=== PATIENT | male | born 1985 | race Caucasian/White ===

== ENCOUNTER 2025-01-16 16:09 | Outpatient (CLI) | payer BC, SELFPAY | END 2025-01-16 16:10 | disposition home or self-care (01) | LOC: AMB 01-19 15:58 | PROVIDERS: Visit Provider Family Medicine | DX: R56.9 Unspecified convulsions (principal); S09.90XA Unspecified injury of head, initial encounter; W19.XXXA Unspecified fall, initial encounter; Y93.89 Activity, other specified; Y92.318 Other athletic court as the place of occurrence of the external cause | CPT/HCPCS: A0425; A0427 ==

== ENCOUNTER 2025-01-16 16:34 | Emergency (ER) | payer BC, SELFPAY ==
--- OUTSIDE RECORDS SUMMARY | 2025-01-05 14:45 | XMS_ITS | Encounter Summary ---
Author Organization [facility] Address [address] [place] [address] Care Team Providers Care Sales Representative [employer] Name Role Phone Jamshid Sapp MD Unavailable [phone] Darío Medeiros MD Primary Care Provider [phone] Source Comments In the event that this is information that is protected by federal Confidentiality of Substance User Disorder Patient Records, 42 CFR Part 2 prohibits the unauthorized disclosure of these records.[facility] Encounter Details Date Type Department Care Team (Latest Contact Info) Description 01/05/2025 2:45 PM CDT Outpatient Testing [facility] [address] [phone] Acquired hemolytic anemia (CMS-HCC); Macrocytic anemia Social History Tobacco Use Types Packs/Day Years Used Date Smoking Tobacco: Never Smokeless Tobacco: Never Alcohol Use Standard Drinks/Week Comments Not Currently 3 (1 standard drink = 0.6 oz pur e alcohol) Food Insecurity Answer Date Recorded Have there been times that y our food ran out, and you didn't have money to get more? No 02/18/2023 Are there times that you worry that this might h appen? No 02/18/2023 Transportation Needs Answer Date Record ed Do you have trouble getting transportation to medical appointments? No 02/18/2023 How do you normally get to and from your appoint ments? Other 02/18/2023 Housing Stability Answer Date Recorded Are you concerned about havi ng a safe and reliable place to live? No 02/18/2023 Medication Affordability Answer Date Re corded Do you have trouble getting medicines, medical supplies, or paying for medication co-pays on a regular basis? No 01/29 Assistance Answer Date Recorded Would you like to be connect ed to groups that can help with any of these topics? (choose all that apply) None 02/18/2023 [employer] Resources Answer Date Recorded Would you like to be connect ed to groups that can help with any of these topics? (choose all that apply) None 02/18/2023 Housing Stability Answer Date Recorded Are you worried that your el ectric, gas, oil, or water might be shut off? Not on file 02/18/2023 Are you concerned about [facility] a safe and reliable place to live? 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 Not on file Not on camryn e documented as of this encounter Plan of Treatment Upcoming Encounters Date Type Department Care Team (Late st Contact Info) Description 04/08/2025 11:10 AM [employer] Outpatient Testing [facility] [address] [phone] 3 month 04/08/2025 11:45 AM [employer] Office Visit [facility] [address] [phone] [place] [address] [place] [phone] 3 month documented as of this encounter Procedures Procedure Name Priority Date/Time Associated Diagnosis Comments RETICULOCYTE COUNT Routine 01/05/2025 2: 51 PM CDT Acquired hemolytic anemia (CMS-HCC) Macrocytic anemia CBC AND DIFFERENTIAL Routine 01/05/2025 2:51 PM CDT Acquired hemolytic anemia (CMS-HCC) LDH Routine 01/05/2025 2:51 PM CDT Acquired hemolytic anemia (CMS-HCC) Macrocytic anemia HAPTOGLOBIN Routine 01/05/2025 2:51 PM CDT Acquired hemolytic anemia (CMS-HCC) Macrocytic anemia COMPREHENSIVE METABOLIC PANEL Routine 01/05/2025 2:51 PM CDT Acquired hemolytic anemia (CMS-HCC) Macrocytic anemia documented in this encounter Results * (ABNORMAL) Haptoglobin (01/05/2025 2:51 PM CDT) Haptoglobin <30(L) 30 - 210 mg/dL 01/06/2025 11:07 AM CDT [facility] Blood VEIN SPECIMEN / Unknown Blood Collection / Unknown 01/05/2025 2:51 PM CDT 01/05/2025 3:20 PM CDT us Jamshid Sapp MD CHEMISTRY ORDERABLES Final R esult Performing Organization Address City/[facility]/ZIP Co de Phone Number [facility] Brittany Rice [address] [place] [address] * LDH (01/05/2025 2:51 PM CDT) LDH 179 0 - 271 units/L 01/05/2025 3:34 PM CDT [facility] Blood VEIN SPECIMEN / Unknown Blood Collection / Unknown 01/05/2025 2:51 PM CDT 01/05/2025 3:20 PM CDT Jamshid Sapp MD CHEMISTRY ORDERABLES Final R esult [facility] [address] [place] [address] * (ABNORMAL) Reticulocyte Count (01/05/2025 2:51 PM CDT) Reticulocyte Count Percent 3.53(H) 0.50 - 2.50 % 01/05/2025 3:26 PM CDT [facility] Reticulocyte Count Absolute 145.10 No defined reference range 10 3/ L 01/05/2025 3:26 PM CDT [facility] Blood VEIN SPECIMEN / Unknown Blood Collection / Unknown 01/05/2025 2:51 PM CDT 01/05/2025 3:18 PM CDT Narrative [facility] - 01/05/2025 3:26 PM CDT Reference ranges for nonbinary/intersex or unspecified gender patients have not been established. Please refer to the following table for ranges established for cisgender patients and evaluate in the clinical context of the individual patient: [email or web address]/genderx [email or web address] Jamshid Sapp MD HEMATOLOGY ORDERABLES Final Result [facility] [address] [place] [address] * (ABNORMAL) Comprehensive Metabolic Panel (01/05/2025 2:51 PM CDT) Sodium 137 133 - 146 mmol/L 01/05/2025 3:34 PM CDT [facility] Potassium 3.9 3.5 - 5.1 mmol/L 01/05/2025 3:34 PM CDT [facility] Chloride 99 98 - 109 mmol/L 01/05/2025 3:34 PM CDT [facility] Carbon Dioxide 30 21 - 31 mmol/L 01/05/2025 3:34 PM CDT [facility] Anion Gap 8 4 - 13 mmol/L 01/05/2025 3:34 PM CDT [facility] Blood Urea Nitrogen 19 2 - 25 mg/dL 01/05/2025 3:34 PM CDT [facility] Creatinine 1.04 0.60 - 1.30 mg/dL 01/05/2025 3:34 PM CDT [facility] eGFRcr (CKD-EPI 2020) >90 >=60 mL/min/1. 73 m 01/05/2025 3:34 PM CDT [facility] Calcium 10.1 8.3 - 10.5 mg/dL 01/05/2025 3:34 PM CDT [facility] Glucose 91 65 - 100 mg/dL 01/05/2025 3:34 PM CDT [facility] Protein, Total 7.7 6.4 - 8.9 g/dL 01/05/2025 3:34 PM CDT [facility] Albumin 5.1 3.5 - 5.7 g/dL 01/05/2025 3:34 PM CDT [facility] ALT 23 0 - 52 units/L 01/05/2025 3:34 PM CDT [facility] Alkaline Phosphatase 61 34 - 104 units/L 01/05/2025 3:34 PM CDT [facility] AST 18 0 - 39 units/L 01/05/2025 3:34 PM CDT [facility] Bilirubin, Total 1.2(H) 0.0 - 1.0 mg/dL 01/05/2025 3:34 PM CDT [facility] Patient Fasting? Nonfasting 01/05/2025 3:34 PM CDT [facility] Blood VEIN SPECIMEN / Unknown Blood Collection / Unknown 01/05/2025 2:51 PM CDT 01/05/2025 3:20 PM CDT us Jamshid Sapp MD CHEMISTRY ORDERABLES Final R esult [facility] [address] [place] [address] * (ABNORMAL) CBC with Differential (01/05/2025 2:51 PM CDT) WBC 4.9 3.5 - 10.5 10 3/ L 01/05/2025 3:26 PM CDT [facility] RBC 4.11(L) (Based on documented legal sex) 4.30-5.80 10 6/ L 01/05/2025 3:26 PM CDT [facility] HGB 14.3 (Based on documented legal sex) 13.0-17.5 g/dL 01/05/2025 3:26 PM CDT [facility] HCT 42.9 (Based on documented legal sex) 38.0-50.0 % 01/05/2025 3:26 PM CDT [facility] MCV 104.4(H) 80.0 - 99.0 fL 01/05/2025 3:26 PM [facility] MCH 34.8(H) 27.0 - 34.0 pg 01/05/2025 3:26 PM [facility] MCHC 33.3 32.0 - 35.5 g/dL 01/05/2025 3:26 PM [facility] RDW 11.6 11.0 - 15.0 % 01/05/2025 3:26 PM [facility] PLT 239 150 - 400 10 3/ L 01/05/2025 3:26 PM [facility] MPV 9.2 8.8 - 12.1 fL 01/05/2025 3:26 PM [facility] NRBC's 0.0 0.0 % 01/05/2025 3:26 PM [facility] Absolute NRBCs 0.0 No reference range established 10 3/ L 01/05/2025 3:26 PM [facility] Neutrophils 77.7(H) 34.0 - 73.0 % 01/05/2025 3:26 PM [facility] Lymphocytes 12.7(L) 15.0 - 50.0 % 01/05/2025 3:26 PM [facility] Monocytes 7.8 1.0 - 15.0 % 01/05/2025 3:26 PM [facility] Eosinophils 1.0 0.0 - 8.0 % 01/05/2025 3:26 PM [facility] Basophils 0.6 0.0 - 2.0 % 01/05/2025 3:26 PM [facility] Immature Granulocytes 0.2 No defined reference range % 01/05/2025 3:26 PM [facility] Comment:Immature Granulocyte s (IG) represents automated enumeration of Metamyelocytes, Myelocytes and Promyelocytes when IG is < 5%. Blasts are not included in IG and reported separately if present. Absolute Neutrophils 3.8 1.5 - 8.0 10 3/ L 01/05/2025 3:26 PM T [facility] Absolute Lymphocytes 0.6(L) 1.0 - 4.0 10 3/ L 01/05/2025 3:26 PM [facility] Absolute Monocytes 0.4 0.2 - 1.0 10 3/ L 01/05/2025 3:26 PM CDT [facility] Absolute Eosinophils 0.1 0.0 - 0.6 10 3/ L 01/05/2025 3:26 PM CDT [facility] Absolute Basophils 0.0 0.0 - 0.3 10 3/ L 01/05/2025 3:26 PM CDT [facility] Absolute Immature Granulocytes 0.0 0.00 - 0.10 10 3/ L 01/05/2025 3:26 PM CDT [facility] Blood VEIN SPECIMEN / Unknown Blood Collection / Unknown 01/05/2025 2:51 PM CDT 01/05/2025 3:18 PM CDT Narrative [facility] - 01/05/2025 3:26 PM CDT Reference ranges for nonbinary/intersex or unspecified gender patients have not been established. Please refer to the following table for ranges established for cisgender patients and evaluate in the clinical context of the individual patient: [email or web address].org/genderx [email or web address] Jamshid Sapp MD HEMATOLOGY ORDERABLES Final Result [facility] [address] [place] [address] documented in this encounter Visit Diagnoses Diagnosis Acquired hemolytic anemia (CMS-HCC) Acquired hemolytic anemia, unspecified Macrocytic anemia Unspecified deficiency anemia documented in this encounter Care Teams Sales Representative [employer] Relationship Specialty Start Date End Date Darío Medeiros MD [address] [place] [address] PCP - General Internal Medicine 04/25/23 Jamshid Sapp MD [address] [place], [place] [id number] System Generated Attributed Clinician 04/10/23 documented as of this encounter
--- OUTSIDE RECORDS SUMMARY | 2025-01-05 15:45 | XMS_ITS | Encounter Summary ---
Author Organization [facility] Address [address] [place] [address] Care Team Providers Care Plasterer Tender Name Role Phone Jamshid Sapp MD Unavailable [phone] Darío Medeiros MD Primary Care Provider Source Comments In the event that this is information that is protected by federal Confidentiality of Substance User Disorder Patient Records, 42 CFR Part 2 prohibits the unauthorized disclosure of these records.[facility] Reason for Visit * Reason Comments Follow-up Encounter Details Date Type Department Care Team (Late st Contact Info) Description 01/05/2025 3:45 PM CDT Office Visit [facility] [address] [phone] Jamshid Sapp MD [address] [place] [address] Acquired hemolytic anemia (CMS-HCC) (Primary Dx); Macrocytic anemia Social History Tobacco Use Types [...] Answer Date Recorded Are you concerned about [place] a safe and reliable place to live? [...] on file 02/18/2023 Are you concerned about [place] a safe and reliable place to live? 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 Not on file Not on camryn e documented as of this encounter Last Filed Vital Signs Vital Sign Reading Time Taken Comments Blood Pressure 145/87 01/05/2025 3:08 PM CDT Pulse 99 01/05/2025 3:07 PM CDT Temperature 36.4 C (97.5 F) 01/05/2025 3:07 PM CDT Respiratory Rate - - Oxygen Saturation 97% 01/05/2025 3:07 PM CDT Inhaled Oxygen Concentration - - Weight 66.9 kg (147 lb 6.4 oz) 01/05/2025 3:07 P M CDT Height - - Body Mass Index 20.56 06/17/2024 1:19 PM [employer] documented in this encounter Progress Notes * Jamshid Sapp MD - 01/05/2025 3:45 PM CDT MEDICAL ONCOLOGY & HEMATOLOGY PROGRESS NOTE Reason for Visit: Follow up of Macrocytic anemia, jaundice Requesting Provider: Darío Medeiros MD Date: 01/05/25 Chief Concern: Macrocytic anemia, jaundice Hematological History: 03/2022: He reported that his friends first noticed that he was jaundiced. He did not have any blood transfusions, new medications, supplements, infections, travel, tick bites 06/2022: Travel to [place] with multiple insect bites. 02/06/2023: Labs showed hemoglobin 9.5, MCV 114, platelets 195, total bilirubin 6.8 02/19/2023: Labs showed hemoglobin 10.6, MCV 115.2, platelets 199, total bilirubin 6.2 with direct bilirubin 0.7, folate > 20. B12 1067. HIV negative, hepatitis C antibody negative, TSH 0.98. Peripheral smear showed macrocytic anemia and anisopoikilocytosis including ovalocytes, yeyo cells, teardrop cells, acanthocytes. 02/28/2023: He established care with me at clinic. Hemoglobin continued to improve with decrease in bilirubin. Direct bria negative. Hepatitis B negative. Iron 114, Tsat 34%, ferritin 95. 03/07/2023: Liver ultrasound unremarkable 03/21/2023: hemoglobin 11.9, MCV 105, retic 3.36, Total bilirubin 2.3, haptoglobin <30, LDH 195 03/28/2023: G6PD normal, copper normal, PNH negative, No abnormal hemoglobin on hemoglobin electrophoresis, FRANCISCO J negative, TSH within normal limit 04/25/2023: FRANCISCO J negative. Peripheral flow with polytypic B-cell and T-cell population, no blasts. 09/11/2023: Bone marrow biopsy showed normocellular bone marrow (70%) with normal multilineage hematopoiesis with mild erythroid hyperplasia, no increase in blasts, no evidence of myelodysplasia. Flowresults do not show monoclonal population. Cytogenetic showed normal male karyotype. Heme NGS was negative for any clinically significant alterations. 02/22/2024: CT chest abdomen pelvis with no acute etiology. He is noted to have splenomegaly with spleen measuring 14.5 cm 06/17/2024: EGD/colonoscopy with few shallow erosions in the prepyloric antrum, small hemorrhoids. Pathology negative for H. pylori or malignancy. 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 male who presents for follow up of macrocytic anemia, jaundice. His history is as above. He does have more stress in life due to family related concerns Reports episode of jaundice and nausea 1-2 weeks ago Past Medical History: None Past Surgical History: Tonsillectomy Tympanostomy tube placement Allergies Allergen Reactions Latex Itching and Rash Current Outpatient Medications on File Prior to Visit Medication Sig Dispense Refill ascorbic acid (VITAMIN C ORAL) Take by mouth. clonazePAM 0.5 mg tablet Take 2 tablets by mouth if needed. cloNIDine HCL 0.1 mg tablet 1 tablet. esomeprazole (NEXIUM) 40 mg capsule 1 capsule by mouth daily, 30-60 minutes before eating 30 capsule 11 FLUoxetine 10 mg capsule Take 5 capsules by mouth daily. FOLIC ACID ORAL Take by mouth. gabapentin 100 mg capsule Take 1 oral capsule as needed up to 3 times a day hydrOXYzine 25 mg tablet Take 1 tablet by mouth every 6 (six) hours as needed. mirtazapine 15 mg tablet ondansetron-ODT 4 mg disintegrating tablet QUEtiapine 50 mg tablet extended release 24 hr Take 1 tablet by mouth if needed. sertraline 25 mg tablet Take 1 tablet by mouth daily. Take 25mg for one week and then start 50mg sodium,potassium,mag sulfates (SUPREP BOWEL PREP KIT) 17.5-3.13-1.6 gram Recon Soln Take as directed 354 mL 0 No current facility-administered medications on file prior to visit. Family History: Maternal grandfather had leukemia. Social History: He is a current every day cigarette smoker (vaping) and reports decrease in alcohol intake but doesreport heavy drinking prior to 2019 with 6-8 bottles of kasey a week. 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 Review of Systems: Constitutional, ophthalmologic, ENT, cardiac, pulmonary, GI, , musculoskeletal, neurologic, psychiatric, lymphatic and hematologic review is negative except as noted above or as noted in the reviewon the new patient questionnaire. Pain Score: 0/10 Performance Status: ECOG PS 0 Emotional Well-being: There is no evidence of new, acute distress. OBJECTIVE Vitals: Most Recent : BP 145/87 Pulse 99 Temp 97.5 ??F (36.4 ??C) (Temporal) Wt 66.9 kg (147 lb 6.4 oz) SpO2 97% BMI 20.56 kg/m?? Wt Readings from Last 3 Encounters: 01/05/25 66.9 kg (147 lb 6.4 oz) 06/17/24 64 kg (141 lb) 05/20/24 64.1 kg (141 lb 6.4 oz) Physical Exam: General: In no acute distress HEENT: sclera anicteric, no pallor, mucous membranes moist, oropharynx clear Lymphatics: no cervical or supraclavicular adenopathy Chest: clear to auscultation bilaterally Heart: regular rate and rhythm Abdomen: soft, non-tender Extremities: no edema Neurologic: Alert, speech normal, no gross motor or sensory deficits noted Psychiatric exam: Appropriate affect Skin: no rashes or bruises Lab/Radiology/Diagnostic Review: CBC: Lab Results Component Value Date WBC 4.9 01/05/2025 HGB 14.3 01/05/2025 HCT 42.9 01/05/2025 MCV 104.4 (H) 01/05/2025 NEUTROABS 3.8 01/05/2025 CMP: Lab Results Component Value Date CO2 30 01/05/2025 GLUCOSE 91 01/05/2025 CREATININE 1.04 01/05/2025 CALCIUM 10.1 01/05/2025 AST 18 01/05/2025 ALT 23 01/05/2025 ALKPHOS 61 01/05/2025 BILITOT 1.2 (H) 01/05/2025 PROT 7.7 01/05/2025 ANIONGAP 8 01/05/2025 Radiology: I have personally reviewed the pertinent imaging as per HPI. Pathology: I have personally reviewed the pertinent pathology as per HPI. ASSESSMENT & PLAN: Kennedy Garcia is a 39 y.o. male who presents for follow up of bria negative hemolytic anemia. Hemoglobin and bilirubin improved. So far non-immune causes of hemolysis have been unrevealing. Bone marrow biopsy was unrevealing. We can consider trial of steroids plus minus rituximab if hemoglobin <10. Occasionally, he does have lower hemoglobin than his normal baseline. However hemolysis markers arenot concurrently elevated. Given these findings and symptoms of rectal bleeding, he underwent EGD/colonoscopy which did not show acute source of bleeding. We discussed starting empiric steroids plus minus rituximab pending steroid response for hemolytic anemia if hemoglobin consistently <10. Hemoglobin normal today and hemolysis markers improved. Continue folic acid 1 mg daily, can increase to 2-4 mg/day. He will follow up with me in 3 months. He is advised to call me with any questions or concerns. Jamshid Sapp MD Medical Oncology & Hematology documented in this encounter Plan of Treatment Upcoming Encounters Date Type Department Care Team (Late st Contact Info) Description 04/08/2025 11:10 AM [employer] Outpatient Testing [facility] [address] [place] [address] 3 month 04/08/2025 11:45 AM [employer] Office Visit [facility] [address] [place] [id number] Jamshid Sapp MD [address] [place], [place] [id number] 3 month documented as of this encounter Visit Diagnoses Diagnosis Acquired hemolytic anemia (CMS-HCC)- Primary Acquired hemolytic anemia, unspecified Macrocytic anemia Unspecified deficiency anemia documented in this encounter Care Teams Plasterer Tender Relationship Specialty Start Date End Date Darío Medeiros MD [address] [place] [address] PCP - General Internal Medicine 04/25/23 Jamshid Sapp MD [address] [place] [id number] System Generated Attributed Clinician 04/10/23 documented as of this encounter
[2025-01-16 16:43] VITALS: BP 147/96; PULSE 92; RESP 18; TEMP 35.9; O2SAT 94; BMI 21.1
--- NOTE | 2025-01-16 17:12 | CRLHL7_ITS ---
For Patients: As a result of the Century Cures Act, medical imaging exams and procedure reports are released immediately into your electronic medical record. You may view this report before your referring provider. If you have questions, please contact your health care provider. INDICATION: Trauma, fall. TECHNIQUE: CT head without contrast. COMPARISON: None. FINDINGS: CSF spaces: Within normal limits for age. Brain parenchyma and extra-axial spaces: The sparks-white differentiation is normal. No sign of mass, hemorrhage, or midline shift. No extra-axial fluid collection. Skull base and calvarium: The visualized paranasal sinuses and mastoid air cells demonstrate no acute or significant findings. The visualized orbits are grossly unremarkable. No skull fractures. IMPRESSION: Unremarkable noncontrast head CT. Please note that all CT scans at this facility use dose modulation, iterative reconstruction, and/or weight-based dosing when appropriate to reduce radiation dose to as low as reasonably achievable. Dictated by Darrius Ng MD @ 01/16/2025 6:25:28 PM (Electronically Signed)
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
[2025-01-16 17:46] LABS: Lactate* 2.4 mmol/L (0.5-1.9)
[2025-01-16 17:49] LABS: Hematocrit* 34.6 % (37.0-53.0); Hemoglobin* 11.3 gm/dL (13.5-17.5); Immature Granulocytes Abs Auto 0.01 K/uL (0.00-0.30); Immature Granulocytes Pct Auto 0.2 %; Mean Corpuscular HGB Conc 33 gm/dL (32-36); Mean Corpuscular Hemoglobin 34 pg (26-34); Mean Corpuscular Volume 105 fL (80-100); RDW Coefficient of Variation % 11.9 % (11.5-15.5); Red Blood Count* 3.29 m/uL (4.30-5.90); White Blood Count* 6.01 K/uL (4.50-11.00)
[2025-01-16 17:50] LABS: Lymphocytes Absolute Auto 0.60 K/uL (0.90-2.90)
[2025-01-16 17:51] LABS: Slide Review Reflex No
[2025-01-16 17:59] LABS: Appearance Urine Clear (Clear)
[2025-01-16 18:04] LABS: Chloride* 102 mmol/L (96-114)
[2025-01-16 18:05] LABS: Potassium* 4.9 mmol/L (3.6-5.1); Sodium* 138 mmol/L (135-149)
[2025-01-16 18:07] LABS: Alanine Aminotransferase* 25 U/L (4-50); Alkaline Phosphatase* 47 U/L (40-150); Anion Gap 9 mEq/L (7-15); Aspartate Amino Transferase* 37 U/L (12-35); Bilirubin Direct* 0.4 mg/dL (0.0-0.5); Bilirubin Total* 3.7 mg/dL (0.1-1.5); Blood Urea Nitrogen* 18 mg/dL (5-24); Calcium* 9.7 mg/dL (8.4-10.6); Carbon Dioxide* 27 mmol/L (20-32); Creatinine* 1.0 mg/dL (0.5-1.5); Est. Creatinine Clearance* 85.90; Estimated Glomerular Filt Rate 98 ml/min; Glucose* 115 mg/dL (60-115); Total Protein* 7.1 g/dL (6.0-8.3)
[2025-01-16 18:15] LABS: Cannabinoid Screen Urine POSITIVE (Negative)
[2025-01-16 18:16] LABS: Methamphetamines Screen Urine Negative (Negative); Tricyclic Antidepressant Urine Negative (Negative)
--- OUTSIDE RECORDS SUMMARY | 2025-01-16 18:21 | XMS_ITS | Clinical Summary ---
Author Organization [facility] Address [address] [place] [address] Care Team Providers Care Trainer Name Role Phone Unknown, Patient Pcp Primary Care Provider Unava ilable Source Comments [facility] is the largest [facility] system based in [place]. We offer more than 150 locations around the [facility], in communities large and small, so health care access is convenient. With 19 [facility] and [facility] hospitals, over 25 long-term care and custodial facilities, dozens of physician offices and health centers, home care, hospice, behavioral health services and more. Currently six of our Hospitals are live on the [facility] system, they are: [facility], located within [facility] Social History Tobacco Use Types Packs/Day Years Used Date Smoking Tobacco: Never Assessed Sex and Gender Information Value Date Recorded Sex Assigned at Not on file Gender Identity Not on file Sexual Orientation Not on file Plan of Treatment Health Maintenance Due Date Last Done Comments DEPRESSION SCREENING 1 YEAR 1997 Influenza Vaccine (#1) 2024 Lipid Panel 02/19/2026 02/19/2023, 04/06/2008 DTAP,TDAP AND TD VACCINES (3 - Td or Tdap) 02/19/2033 02/19/2023, 03/18/2013 RSV Vaccine Patients 60 Year s and Older (1 - 1-dose 75+ series) 2060 HIV SCREENING Completed 02/19/2023 Pneumococcal Vaccine: Peds (0-5 Yrs) and At-Risk (6-64 Yrs) Aged Out No longer eligible b ased on patient's age to complete this topic RSV Vaccine Pediatric Patients under 20 months Aged Out No longer eligi ble based on patient's age to complete this topic Care Teams Trainer Relationship Specialty Start Date End Date Unknown, Patient Pcp [address] [place] [address] PCP - General 05/02/24
--- OUTSIDE RECORDS SUMMARY | 2025-01-16 18:21 | XMS_ITS | Clinical Summary ---
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 Gender Identity Not on file Sexual Orientation Not on file Plan of Treatment Health Maintenance Due Date Last Done Comments HIV Screening 1985 Hepatitis C Screening 1985 HPV Vaccines (Age 27-45) (1 - 3-dose SCDM series) 2012 DTaP,Tdap and Td Vaccines (2 - Td or Tdap) 03/18/2023 03/18/2013 COVID-19 Vaccine ( - 2023-2 5 season) 2024 Influenza Vaccine (#1) 2024 Meningococcal B Aged Out No longer el igible based on patient's age to complete this topic Pneumococcal 7-64 Aged Out No longer eligible based on patient's age to complete this topic RSV Vaccine (Pediatric) Aged Out No l onger eligible based on patient's age to complete this topic Insurance [facility] [employer] Care Teams It Security Analyst Relationship Specialty Start Date End Date Pcp-Interviewed, Pt Has Pcp But Does Not Know Name Of Pcp [address] [place] [address] PCP - General 03/18/13
--- OUTSIDE RECORDS SUMMARY | 2025-01-16 18:21 | XMS_ITS | Encounter Summary ---
Author Organization [facility] Address [address] [place] [address] Care Team Providers Care Peripheral Edp Equipment Operator Name Role Phone Jamshid Sapp MD Unavailable [phone] Darío Medeiros MD Primary Care Provider [phone] Source Comments In the event that this is information that is protected by federal Confidentiality of Substance User Disorder Patient Records, 42 CFR Part 2 prohibits the unauthorized disclosure of these records.[facility] Encounter Details Date Type Department Care Team (Late st Contact Info) Description 02/20/2024 Procedure Pass [place] [facility] [address] [facility] [address] [place], [place] [id number] Social History Tobacco Use Types Packs/Day Years [...] Answer Date Recorded Are you concerned about [facility] a safe and reliable place to [...] on file 02/18/2023 Are you concerned about [facility] ng a safe and reliable place to live? 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 Not on file Not on camryn e documented as of this encounter Plan of Treatment Upcoming Encounters Date Type Department Care Team (Late st Contact Info) Description 04/08/2025 11:10 AM APPLICATION PROGRAMMER ANALYST Outpatient Testing [facility] [address] [place] [phone] 3 month 04/08/2025 11:45 AM APPLICATION PROGRAMMER ANALYST Office Visit [facility] [address] [place] [phone] Jamshid Sapp MD [address] [place] [address] 3 month documented as of this encounter Visit Diagnoses Not on filedocumented in this encounter Additional Health Concerns Infection Onset Date Last Indicated Resolved Time Rule-out C. diff 04/18/2024 05/20/2024 04/19/2024 7:26 PM APPLICATION PROGRAMMER ANALYST documented as of this encounter Care Teams Peripheral Edp Equipment Operator Relationship Specialty Start Date End Date Darío Medeiros MD [address] [place] [address] PCP - General Internal Medicine 04/25/23 Jamshid Sapp MD [address] [place] [id number] System Generated Attributed Clinician 04/10/23 documented as of this encounter
--- OUTSIDE RECORDS SUMMARY | 2025-01-16 18:21 | XMS_ITS | Clinical Summary ---
Author Organization [facility] Address [address] [place] [address] Care Team Providers Care Nail Sticker Name Role Phone Pcp, Verify Primary Care Provider Unavailabl e Immunizations Immunization Administration Dates Next Due COVID Pfizer 12Y+ (Requires Dilution) 04/13/2021 Social History Tobacco Use Types Packs/Day Years Used Date Smoking Tobacco: Never Assessed Inadequate Housing Answer Date Recorded Social Determinants: Housing (Overall Score Help er) 0 04/11/2021 Sex and Gender Information Value Date Recorded Sex Assigned at Not on file Legal Sex Male 3:13 PM CDT Gender Identity Not on file Sexual Orientation Not on file Last Filed Vital Signs Vital Sign Reading Time Taken Comments Blood Pressure 130/72 10/26/2017 1:55 PM CDT Pulse - - Temperature 36.7 C (98.1 F) 10/26/2017 1:55 PM CDT Respiratory Rate - - Oxygen Saturation - - Inhaled Oxygen Concentration - - Weight 72.1 kg (159 lb) 10/26/2017 1:55 PM CDT Height 177.8 cm (5' 10) 10/26/2017 1:55 PM CDT Body Mass Index 22.81 10/26/2017 1:55 PM CDT Plan of Treatment Health Maintenance Due Date Last Done Comments Depression Screening 1997 Varicella Vaccine (1 of 2 - 13+ 2-dose series) 1998 Hepatitis B Vaccine (1 of 3 - 19+ 3-dose series) 2004 DTaP/Tdap/Td Vaccine (2 - Td or Tdap) 03/18/2023 03/18/2013 COVID-19 Vaccine (4 - 2024-2 6 season) 2024 04/13/2021, 08/28/2020, 08/07/2020 Influenza Vaccine (#1) 2024 HPV Vaccine (No Doses Required) Completed Hepatitis A Vaccine Aged Out No longe r eligible based on patient's age to complete this topic Meningococcal Serogroup B Vaccine Aged Out No longer eligible b ased on patient's age to complete this topic Meningococcal Vaccine Aged Out No renaldo noemí eligible based on patient's age to complete this topic Pneumococcal Vaccine 0-49 Aged Out No longer eligible based on patient's age to complete this topic Insurance [facility] Care Teams Nail Sticker Relationship Specialty Start Date End Date Pcp, Verify PCP - General 01/21/21
--- OUTSIDE RECORDS SUMMARY | 2025-01-16 18:22 | XMS_ITS | Encounter Summary ---
Author Organization [facility] Address [address] [place] [address] Care Team Providers Care Emergency Medicine Specialist Name Role Phone Jamshid Sapp MD Unavailable [phone] Darío Medeiros MD Primary Care Provider [phone] Source Comments In the event that this is information that is protected by federal Confidentiality of Substance User Disorder Patient Records, 42 CFR Part 2 prohibits the unauthorized disclosure of these records.[facility] Encounter Details Date Type Department Care Team (Late st Contact Info) Description 06/20/2024 Orders Only [place] Hematology and Oncology [address] [phone] Jamshid Sapp MD [address] [place] [address] Social History Tobacco Use Types Packs/Day Years [...] Answer Date Recorded [facility] and reliable [facility] to [...] on file 02/18/2023 Are you concerned about [facility] ng a safe and reliable place to live? 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 Not on file Not on camryn e documented as of this encounter Plan of Treatment Upcoming Encounters Date Type Department Care Team (Late st Contact Info) Description 04/08/2025 11:10 AM MICA SIZER Outpatient Testing [place] [facility] [address] [phone] 3 month 04/08/2025 11:45 AM MICA SIZER Office Visit [place] Hematology and Oncology [address] [phone] Jamshid Sapp MD [address] [place], [place] [id number] 3 month documented as of this encounter Results * (ABNORMAL) Haptoglobin (09/19/2024 2:55 PM CDT) Haptoglobin <30(L) 30 - 210 mg/dL 09/20/2024 2:21 PM CDT [facility] Blood VEIN SPECIMEN / Unknown Blood Collection / Unknown 09/19/2024 2:55 PM CDT 09/19/2024 3:06 PM CDT us Jamshid Sapp MD CHEMISTRY ORDERABLES Final R esult Performing Organization Address City/[facility]/ZIP Co de Phone Number [facility] Brittany Rice [address] [place] [address] * (ABNORMAL) LDH (09/19/2024 2:55 PM CDT) LDH 309(H) 0 - 271 units/L 09/19/2024 3:31 PM CDT [facility] Blood VEIN SPECIMEN / Unknown Blood Collection / Unknown 09/19/2024 2:55 PM CDT 09/19/2024 3:06 PM CDT us Jamshid Sapp MD CHEMISTRY ORDERABLES Final R esult Performing Organization Address [facility] de Phone Number [facility] [address] [place] [address] * (ABNORMAL) Reticulocyte Count (09/19/2024 2:55 PM CDT) Reticulocyte Count Percent 6.97(H) 0.50 - 2.50 % 09/19/2024 3:09 PM CDT [facility] Reticulocyte Count Absolute 206.30 No defined reference range 10 3/ L 09/19/2024 3:09 PM CDT [facility] Blood VEIN SPECIMEN / Unknown Blood Collection / Unknown 09/19/2024 2:55 PM CDT 09/19/2024 3:06 PM CDT Narrative [facility] - 09/19/2024 3:09 PM CDT Reference ranges for nonbinary/intersex or unspecified gender patients have not been established. Please refer to the following table for ranges established for cisgender patients and evaluate in the clinical context of the individual patient: [email or web address] Jamshid Sapp MD HEMATOLOGY ORDERABLES Final Result Performing Organization Address City/[facility] Co de Phone Number [facility] [address] [place] [address] * (ABNORMAL) Comp Metabolic Panel (09/19/2024 2:55 PM CDT) Sodium 137 133 - 146 mmol/L 09/19/2024 3:31 PM T [facility] Potassium 4.0 3.5 - 5.1 mmol/L 09/19/2024 3:31 PM T [facility] Chloride 101 98 - 109 mmol/L 09/19/2024 3:31 PM [facility] Carbon Dioxide 30 21 - 31 mmol/L 09/19/2024 3:31 PM [facility] Anion Gap 6 4 - 13 mmol/L 09/19/2024 3:31 PM [facility] Blood Urea Nitrogen 14 2 - 25 mg/dL 09/19/2024 3:31 PM T [facility] Creatinine 0.89 0.60 - 1.30 mg/dL 09/19/2024 3:31 PM [facility] eGFRcr (CKD-EPI 2020) >90 >=60 mL/min/1. 73 m 09/19/2024 3:31 PM T [facility] Calcium 9.7 8.3 - 10.5 mg/dL 09/19/2024 3:31 PM [facility] Glucose 83 65 - 100 mg/dL 09/19/2024 3:31 PM [facility] Protein, Total 7.1 6.4 - 8.9 g/dL 09/19/2024 3:31 PM [facility] Albumin 5.0 3.5 - 5.7 g/dL 09/19/2024 3:31 PM [facility] ALT 21 0 - 52 units/L 09/19/2024 3:31 PM [facility] Alkaline Phosphatase 55 34 - 104 units/L 09/19/2024 3:31 PM [facility] AST 22 0 - 39 units/L 09/19/2024 3:31 PM [facility] Bilirubin, Total 4.1(H) 0.0 - 1.0 mg/dL 09/19/2024 3:31 PM [facility] Patient Fasting? Nonfasting 09/19/2024 3:31 PM CDT [facility] Blood VEIN SPECIMEN / Unknown Blood Collection / Unknown 09/19/2024 2:55 PM CDT 09/19/2024 3:06 PM CDT us Jamshid Sapp MD CHEMISTRY ORDERABLES Final R esult [facility] [address] [place] [address] * (ABNORMAL) CBC with Differential (09/19/2024 2:55 PM CDT) WBC 3.9 3.5 - 10.5 10 3/ L 09/19/2024 3:09 PM CDT [facility] RBC 2.96(L) (Based on documented legal sex) 4.30-5.80 10 6/ L 09/19/2024 3:09 PM CDT [facility] HGB 10.6(L) (Based on documented legal sex) 13.0-17.5 g/dL 09/19/2024 3:09 PM CDT [facility] HCT 32.2(L) (Based on documented legal sex) 38.0-50.0 % 09/19/2024 3:09 PM CDT [facility] MCV 108.8(H) 80.0 - 99.0 fL 09/19/2024 3:09 PM CDT [facility] MCH 35.8(H) 27.0 - 34.0 pg 09/19/2024 3:09 PM CDT [facility] MCHC 32.9 32.0 - 35.5 g/dL 09/19/2024 3:09 PM CDT [facility] RDW 12.4 11.0 - 15.0 % 09/19/2024 3:09 PM CDT [facility] PLT 170 150 - 400 10 3/ L 09/19/2024 3:09 PM CDT [facility] MPV 9.0 8.8 - 12.1 fL 09/19/2024 3:09 PM CDT [facility] NRBC's 0.0 0.0 % 09/19/2024 3:09 PM T [facility] Absolute NRBCs 0.0 No reference range established 10 3/ L 09/19/2024 3:09 PM [facility] Neutrophils 64.2 34.0 - 73.0 % 09/19/2024 3:09 PM [facility] Lymphocytes 26.4 15.0 - 50.0 % 09/19/2024 3:09 PM [facility] Monocytes 7.3 1.0 - 15.0 % 09/19/2024 3:09 PM T [facility] Eosinophils 0.8 0.0 - 8.0 % 09/19/2024 3:09 PM [facility] Basophils 0.8 0.0 - 2.0 % 09/19/2024 3:09 PM [facility] Immature Granulocytes 0.5 No defined reference range % 09/19/2024 3:09 PM [facility] Comment:Immature Granulocyte s (IG) represents automated enumeration of Metamyelocytes, Myelocytes and Promyelocytes when IG is < 5%. Blasts are not included in IG and reported separately if present. Absolute Neutrophils 2.5 1.5 - 8.0 10 3/ L 09/19/2024 3:09 PM [facility] Absolute Lymphocytes 1.0 1.0 - 4.0 10 3/ L 09/19/2024 3:09 PM [facility] Absolute Monocytes 0.3 0.2 - 1.0 10 3/ L 09/19/2024 3:09 PM [facility] Absolute Eosinophils 0.0 0.0 - 0.6 10 3/ L 09/19/2024 3:09 PM [facility] Absolute Basophils 0.0 0.0 - 0.3 10 3/ L 09/19/2024 3:09 PM [facility] Absolute Immature Granulocytes 0.0 0.00 - 0.10 10 3/ L 09/19/2024 3:09 PM [facility] Blood VEIN SPECIMEN / Unknown Blood Collection / Unknown 09/19/2024 2:55 PM CDT 09/19/2024 3:06 PM CDT Narrative [facility] - 09/19/2024 3:09 PM CDT Reference ranges for nonbinary/intersex or unspecified gender patients have not been established. Please refer to the following table for ranges established for cisgender patients and evaluate in the clinical context of the individual patient: [email or web address] Jamshid Sapp MD HEMATOLOGY ORDERABLES Final Result [facility] [address] [place] [address] documented in this encounter Visit Diagnoses Diagnosis Acquired hemolytic anemia ([facility]-H[facility])- Primary Acquired hemolytic anemia, unspecified Macrocytic anemia Unspecified deficiency anemia documented in this encounter Care Teams Emergency Medicine Specialist Relationship Specialty Start Date End Date Darío Medeiros MD [address] [place] [address] PCP - General Internal Medicine 04/25/23 Jamshid Sapp MD [address] [place] [address] System Generated Attributed Clinician 04/10/23 documented as of this encounter
--- OUTSIDE RECORDS SUMMARY | 2025-01-16 18:22 | XMS_ITS | Encounter Summary ---
Author Organization [facility] Address [address] [place] [address] Care Team Providers Care Nuclear Chemistry Technician Name Role Phone Jamshid Sapp MD Unavailable [phone] Darío Medeiros MD Primary Care Provider [phone] Source Comments In the event that this is information that is protected by federal Confidentiality of Substance User Disorder Patient Records, 42 CFR Part 2 prohibits the unauthorized disclosure of these records.[facility] Encounter Details Date Type Department Care Team (Late st Contact Info) Description 04/11/2024 Orders Only [place] Hematology and Oncology [address] [phone] Jamshid Sapp MD [address] [place] [address] Social History Tobacco Use Types [...] Answer Date Recorded [facility] and reliable [facility] to [...] on file 02/18/2023 Are you concerned about [facility] ng a safe and reliable place to live? 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 Not on camryn e documented as of this encounter Plan of Treatment Upcoming Encounters Date Type Department Care Team (Late st Contact Info) Description 04/08/2025 11:10 AM ELECTRICAL MAINTENANCE ENGINEER Outpatient Testing [place] [facility] [address] [place] [phone] 3 month 04/08/2025 11:45 AM ELECTRICAL MAINTENANCE ENGINEER Office Visit [place] H[facility]ology [facility] Oncology [address] [phone] Jamshid Sapp MD [address] [place], [place] [id number] 3 month documented as of this encounter Results * (ABNORMAL) Haptoglobin (04/14/2024 1:19 PM ELECTRICAL MAINTENANCE ENGINEER) Haptoglobin <30(L) 30 - 210 mg/dL 04/15/2024 11:48 AM ELECTRICAL MAINTENANCE ENGINEER [facility] Blood VEIN SPECIMEN / Unknown Blood Collection / Unknown 04/14/2024 1:19 PM ELECTRICAL MAINTENANCE ENGINEER 04/14/2024 1:33 PM ELECTRICAL MAINTENANCE ENGINEER Jamshid Sapp MD CHEMISTRY ORDERABLES Final R esult Performing Organization Address [facility]/ZIP Co de Phone Number [facility] Brittany Rice [address] [place] [address] * LDH (04/14/2024 1:19 PM ELECTRICAL MAINTENANCE ENGINEER) LDH 256 0 - 271 units/L 04/14/2024 1:49 PM ELECTRICAL MAINTENANCE ENGINEER [facility] Blood VEIN SPECIMEN / Unknown Blood Collection / Unknown 04/14/2024 1:19 PM ELECTRICAL MAINTENANCE ENGINEER 04/14/2024 1:34 PM ELECTRICAL MAINTENANCE ENGINEER Jamshid Sapp MD CHEMISTRY ORDERABLES Final R esult Performing Organization Address [facility] Co de Phone Number [facility] [address] [place] [address] * (ABNORMAL) Reticulocyte Count (04/14/2024 1:19 PM ELECTRICAL MAINTENANCE ENGINEER) Reticulocyte Count Percent 7.16(H) 0.50 - 2.50 % 04/14/2024 1:36 PM ELECTRICAL MAINTENANCE ENGINEER [facility] Reticulocyte Count Absolute 193.30 No defined reference range 10 3/ L 04/14/2024 1:36 PM ELECTRICAL MAINTENANCE ENGINEER [facility] Blood VEIN SPECIMEN / Unknown Blood Collection / Unknown 04/14/2024 1:19 PM ELECTRICAL MAINTENANCE ENGINEER 04/14/2024 1:34 PM ELECTRICAL MAINTENANCE ENGINEER Jamshid Sapp MD HEMATOLOGY ORDERABLES Final Result Performing Organization Address [facility] Co de Phone Number [facility] [address] [place] [address] * (ABNORMAL) Comp Metabolic Panel (04/14/2024 1:19 PM ELECTRICAL MAINTENANCE ENGINEER) Sodium 139 133 - 146 mmol/L 04/14/2024 1:49 PM ELECTRICAL MAINTENANCE ENGINEER [facility] Potassium 4.1 3.5 - 5.1 mmol/L 04/14/2024 1:49 PM [facility] Chloride 104 98 - 109 mmol/L 04/14/2024 1:49 PM [facility] Carbon Dioxide 30 21 - 31 mmol/L 04/14/2024 1:49 PM [facility] Anion Gap 5 4 - 13 mmol/L 04/14/2024 1:49 PM [facility] Blood Urea Nitrogen 11 2 - 25 mg/dL 04/14/2024 1:49 PM [facility] Creatinine 0.81 0.60 - 1.30 mg/dL 04/14/2024 1:49 PM [facility] eGFRcr (CKD-EPI 2020) >90 >=60 mL/min/1. 73 m 04/14/2024 1:49 PM [facility] Calcium 9.5 8.3 - 10.5 mg/dL 04/14/2024 1:49 PM [facility] Glucose 86 65 - 100 mg/dL 04/14/2024 1:49 PM [facility] Protein, Total 6.9 6.4 - 8.9 g/dL 04/14/2024 1:49 PM [facility] Albumin 4.7 3.5 - 5.7 g/dL 04/14/2024 1:49 PM [facility] ALT 22 0 - 52 units/L 04/14/2024 1:49 PM [facility] Alkaline Phosphatase 50 34 - 104 units/L 04/14/2024 1:49 PM [facility] AST 19 0 - 39 units/L 04/14/2024 1:49 PM [facility] Bilirubin, Total 1.8(H) 0.0 - 1.0 mg/dL 04/14/2024 1:49 PM [facility] Patient Fasting? Nonfasting 04/14/2024 1:49 PM [facility] Blood VEIN SPECIMEN / Unknown Blood Collection / Unknown 04/14/2024 1:19 PM ELECTRICAL MAINTENANCE ENGINEER 04/14/2024 1:34 PM ELECTRICAL MAINTENANCE ENGINEER us Bindiya G. Sapp MD CHEMISTRY ORDERABLES Final R esult [facility] [address] [place] [address] * (ABNORMAL) CBC with Differential (04/14/2024 1:19 PM ELECTRICAL MAINTENANCE ENGINEER) WBC 2.7(L) 3.5 - 10.5 10 3/ L 04/14/2024 1:36 PM ELECTRICAL MAINTENANCE ENGINEER [facility] RBC 2.70(L) (Based on documented legal sex) 4.30-5.80 10 6/ L 04/14/2024 1:36 PM ELECTRICAL MAINTENANCE ENGINEER [facility] HGB 9.8(L) (Based on documented legal sex) 13.0-17.5 g/dL 04/14/2024 1:36 PM ELECTRICAL MAINTENANCE ENGINEER [facility] HCT 30.5(L) (Based on documented legal sex) 38.0-50.0 % 04/14/2024 1:36 PM ELECTRICAL MAINTENANCE ENGINEER [facility] MCV 113.0(H) 80.0 - 99.0 fL 04/14/2024 1:36 PM ELECTRICAL MAINTENANCE ENGINEER [facility] MCH 36.3(H) 27.0 - 34.0 pg 04/14/2024 1:36 PM ELECTRICAL MAINTENANCE ENGINEER [facility] MCHC 32.1 32.0 - 35.5 g/dL 04/14/2024 1:36 PM ELECTRICAL MAINTENANCE ENGINEER [facility] RDW 12.2 11.0 - 15.0 % 04/14/2024 1:36 PM ELECTRICAL MAINTENANCE ENGINEER [facility] PLT 144(L) 150 - 400 10 3/ L 04/14/2024 1:36 PM ELECTRICAL MAINTENANCE ENGINEER [facility] MPV 8.8 8.8 - 12.1 fL 04/14/2024 1:36 PM ELECTRICAL MAINTENANCE ENGINEER [facility] Neutrophils 60.0 34.0 - 73.0 % 04/14/2024 1:36 PM ELECTRICAL MAINTENANCE ENGINEER [facility] Lymphocytes 29.0 15.0 - 50.0 % 04/14/2024 1:36 PM ELECTRICAL MAINTENANCE ENGINEER [facility] Monocytes 8.0 1.0 - 15.0 % 04/14/2024 1:36 PM ELECTRICAL MAINTENANCE ENGINEER [facility] Eosinophils 2.0 0.0 - 8.0 % 04/14/2024 1:36 PM ELECTRICAL MAINTENANCE ENGINEER [facility] Basophils 1.0 0.0 - 2.0 % 04/14/2024 1:36 PM [facility] Immature Granulocytes 0.0 No defined reference range % 04/14/2024 1:36 PM [facility] Comment:Immature Granulocyte s (IG) represents automated enumeration of Metamyelocytes, Myelocytes and Promyelocytes when IG is < 5%. Blasts are not included in IG and reported separately if present. Absolute Neutrophils 1.7 1.5 - 8.0 10 3/ L 04/14/2024 1:36 PM [facility] Absolute Lymphocytes 0.8(L) 1.0 - 4.0 10 3/ L 04/14/2024 1:36 PM ELECTRICAL MAINTENANCE ENGINEER [facility] Absolute Monocytes 0.2 0.2 - 1.0 10 3/ L 04/14/2024 1:36 PM [facility] Absolute Eosinophils 0.0 0.0 - 0.6 10 3/ L 04/14/2024 1:36 PM [facility] Absolute Basophils 0.0 0.0 - 0.3 10 3/ L 04/14/2024 1:36 PM [facility] Absolute Immature Granulocytes 0.0 0.00 - 0.10 10 3/ L 04/14/2024 1:36 PM [facility] Differential Type Auto 024 1:36 PM [facility] Blood VEIN SPECIMEN / Unknown Blood Collection / Unknown 04/14/2024 1:19 PM ELECTRICAL MAINTENANCE ENGINEER 04/14/2024 1:34 PM ELECTRICAL MAINTENANCE ENGINEER us Jamshid Sapp MD HEMATOLOGY ORDERABLES Final Result [facility] [address] [place] [address] documented in this encounter Visit Diagnoses Diagnosis Acquired hemolytic anemia (CMS-HCC)- Primary Acquired hemolytic anemia, unspecified documented in this encounter Additional Health Concerns Infection Onset Date Last Indicated Resolved Time Rule-out C. diff 04/18/2024 05/20/202404/1904/19/2024 7:26 PM ELECTRICAL MAINTENANCE ENGINEER documented as of this encounter Care Teams Nuclear Chemistry Technician Relationship Specialty Start Date End Date Darío Medeiros MD [address] [place] [address] PCP - General Internal Medicine 04/25/23 Jamshid Sapp MD [address] [place] [address] System Generated Attributed Clinician 04/10/23 documented as of this encounter
--- OUTSIDE RECORDS SUMMARY | 2025-01-16 18:22 | XMS_ITS | Encounter Summary ---
Author Organization [facility] Address [address] [place] [address] Care Team Providers Care Public Weigher Name Role Phone Jamshid Sapp MD Unavailable [phone] Darío Medeiros MD Primary Care Provider [phone] Source Comments In the event that this is information that is protected by federal Confidentiality of Substance User Disorder Patient Records, 42 CFR Part 2 prohibits the unauthorized disclosure of these records.[facility] Reason for Visit * Reason Comments Appointment Encounter Details Date Type Department Care Team ([facility] st Contact Info) Description 04/15/2024 Telephone [place] Gastroenterology [address] [phone] Conner Randall MD [address] [address] Appointment Social History Tobacco Use Types Packs/Day Years [...] Answer Date Recorded Are you concerned about [facility] a safe and reliable place to [...] on file 02/18/2023 Are you concerned about [facility] ng a safe and reliable place to live? 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 TRY DRESSER documented in this encounter Plan of Treatment Upcoming Encounters Date Type Department Care Team (Late st Contact Info) Description 04/08/2025 11:10 AM POULTRY DRESSER Outpatient Testing [place] [facility] [address] [phone] 3 month 04/08/2025 11:45 AM POULTRY DRESSER Office Visit [place] [facility] [address] [place] [address] Jamshid Sapp MD [address] [place] [address] 3 month documented as of this encounter Visit Diagnoses Not on filedocumented in this encounter Additional Health Concerns Infection Onset Date Last Indicated Resolved Time Rule-out C. diff 04/18/2024 05/20/2024 04/19/2024 7:26 PM POULTRY DRESSER documented as of this encounter Care Teams Public Weigher Relationship Specialty Start Date End Date Darío Medeiros MD [address] [place] [address] PCP - General Internal Medicine 04/25/23 Jamshid Sapp MD [address] [place] [address] System Generated Attributed Clinician 04/10/23 documented as of this encounter
--- OUTSIDE RECORDS SUMMARY | 2025-01-16 18:22 | XMS_ITS | Encounter Summary ---
Author Organization [facility] Address [address] [place] [address] Care Team Providers Care Straightening Roll Operator Name Role Phone Jamshid Sapp MD Unavailable Darío Medeiros MD Primary Care Provider [phone] Source Comments In the event that this is information that is protected by federal Confidentiality of Substance User Disorder Patient Records, 42 CFR Part 2 prohibits the unauthorized disclosure of these records.[facility] Encounter Details Date Type Department Care Team (Late st Contact Info) Description 04/18/2024 Procedure Pass [place] Gastroenterology [address] [facility] [place] [address] Social History Tobacco Use Types Packs/Day Years [...] Answer Date Recorded Are you [facility] a [facility] and reliable place to [...] on file 02/18/2023 Are you concerned about [facility] ng a safe and reliable place to live? 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 Not on camryn e documented as of this encounter Plan of Treatment Upcoming Encounters Date Type Department Care Team (Late st Contact Info) Description 04/08/2025 11:10 AM WATER SUPPLY ENGINEER Outpatient Testing [place] [facility] [address] [place] [phone] 3 month 04/08/2025 11:45 AM WATER SUPPLY ENGINEER Office Visit [place] [facility] [address] [place] [phone] Jamshid Sapp MD [address] [place], [place] [phone] 3 month documented as of this encounter Visit Diagnoses Not on filedocumented in this encounter Additional Health Concerns Infection Onset Date Last Indicated Resolved Time Rule-out C. diff 04/18/2024 05/20/2024 04/19/2024 7:26 PM WATER SUPPLY ENGINEER documented as of this encounter Care Teams Straightening Roll Operator Relationship Specialty Start Date End Date Darío Medeiros MD [address] [place] [address] PCP - General Internal Medicine 04/25/23 Jamshid Sapp MD [address] [place] [address] System Generated Attributed Clinician 04/10/23 documented as of this encounter
--- OUTSIDE RECORDS SUMMARY | 2025-01-16 18:22 | XMS_ITS | Encounter Summary ---
Author Organization [facility] Address [address] [place] [address] Care Team Providers Care Disposal Man Name Role Phone Jamshid Sapp MD Unavailable Darío Medeiros MD Primary Care Provider [phone] Source Comments In the event that this is information that is protected by federal Confidentiality of Substance User Disorder Patient Records, 42 CFR Part 2 prohibits the unauthorized disclosure of these records.[facility] Encounter Details Date Type Department Care Team (Late st Contact Info) Description 12/12/2024 Orders Only [place] Hematology and Oncology [address] [phone] Jamshid Sapp MD [address] [place] [address] Social History Tobacco Use Types [...] Answer Date Recorded Are you concerned about [facility] a safe and reliable place [...] on file 02/18/2023 Are you concerned about [facility] ng a safe and reliable place to live? 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 Not on file Not on camryn e documented as of this encounter Plan of Treatment Upcoming Encounters Date Type Department Care Team (Late st Contact Info) Description 04/08/2025 11:10 AM CLIENT APPLICATION SUPPORT SPECIALIST Outpatient Testing [facility] [address] [place] [phone] 3 month 04/08/2025 11:45 AM CLIENT APPLICATION SUPPORT SPECIALIST Office Visit [facility] [address] [phone] Jamshid Sapp MD [address] [place], [place] [id number] 3 month documented as of this encounter Results * (ABNORMAL) Haptoglobin (01/05/2025 2:51 PM CDT) Haptoglobin <30(L) 30 - 210 mg/dL 01/06/2025 11:07 AM CDT [facility] Blood VEIN SPECIMEN / Unknown Blood Collection / Unknown 01/05/2025 2:51 PM CDT 01/05/2025 3:20 PM CDT us Jamshid Sapp MD CHEMISTRY ORDERABLES Final R esult [facility] Brittany Rice [address] [place] [address] * LDH (01/05/2025 2:51 PM CDT) LDH 179 0 - 271 units/L 01/05/2025 3:34 PM CDT [facility] Blood VEIN SPECIMEN / Unknown Blood Collection / Unknown 01/05/2025 2:51 PM CDT 01/05/2025 3:20 PM CDT us Jamshid Sapp MD CHEMISTRY ORDERABLES Final R esult Performing Organization Address [facility] Co de Phone Number [facility] [address] [place] [address] * (ABNORMAL) Reticulocyte Count (01/05/2025 2:51 PM CDT) Pathologist [facility] Reticulocyte Count Percent 3.53(H) 0.50 - 2.50 % 01/05/2025 3:26 PM CDT [facility] Reticulocyte Count Absolute 145.10 No defined reference range 10 3/ L 01/05/2025 3:26 PM CDT [facility] Blood VEIN SPECIMEN / Unknown Blood Collection / Unknown 01/05/2025 2:51 PM CDT 01/05/2025 3:18 PM CDT Narrative [facility] - 01/05/2025 3:26 PM CDT Reference ranges for nonbinary/intersex or unspecified gender patients have not been established. Please refer to the following table for ranges established for cisgender patients and evaluate in the clinical context of the individual patient: [email or web address].org/genderx us Jamshid Sapp MD HEMATOLOGY ORDERABLES Final Result Performing Organization Address City/[facility]/ZIP Co de Phone Number [facility] [address] [place] [address] * (ABNORMAL) Comprehensive Metabolic Panel (01/05/2025 2:51 PM CDT) Sodium 137 133 - 146 mmol/L 01/05/2025 3:34 PM T [facility] Potassium 3.9 3.5 - 5.1 mmol/L 01/05/2025 3:34 PM T [facility] Chloride 99 98 - 109 mmol/L 01/05/2025 3:34 PM T [facility] Carbon Dioxide 30 21 - 31 mmol/L 01/05/2025 3:34 PM T [facility] Anion Gap 8 4 - 13 mmol/L 01/05/2025 3:34 PM [facility] Blood Urea Nitrogen 19 2 - 25 mg/dL 01/05/2025 3:34 PM [facility] Creatinine 1.04 0.60 - 1.30 mg/dL 01/05/2025 3:34 PM [facility] eGFRcr (CKD-EPI 2020) >90 >=60 mL/min/1. 73 m 01/05/2025 3:34 PM T [facility] Calcium 10.1 8.3 - 10.5 mg/dL 01/05/2025 3:34 PM [facility] Glucose 91 65 - 100 mg/dL 01/05/2025 3:34 PM T [facility] Protein, Total 7.7 6.4 - 8.9 g/dL 01/05/2025 3:34 PM [facility] Albumin 5.1 3.5 - 5.7 g/dL 01/05/2025 3:34 PM [facility] ALT 23 0 - 52 units/L 01/05/2025 3:34 PM [facility] Alkaline Phosphatase 61 34 - 104 units/L 01/05/2025 3:34 PM [facility] AST 18 0 - 39 units/L 01/05/2025 3:34 PM [facility] Bilirubin, Total 1.2(H) 0.0 - 1.0 mg/dL 01/05/2025 3:34 PM T [facility] Patient Fasting? Nonfasting 01/05/2025 3:34 PM CDT [facility] Blood VEIN SPECIMEN / Unknown Blood Collection / Unknown 01/05/2025 2:51 PM CDT 01/05/2025 3:20 PM CDT us Jamshid Sapp MD CHEMISTRY ORDERABLES Final R esult [facility] [address] [place] [address] documented in this encounter Visit Diagnoses Diagnosis Acquired hemolytic anemia ([facility]-HCC)- Primary Acquired hemolytic anemia, unspecified Macrocytic anemia Unspecified deficiency anemia documented in this encounter Care Teams Disposal Man Relationship Specialty Start Date End Date Darío Medeiros MD [address] [place] [address] PCP - General Internal Medicine 04/25/23 Jamshid Sapp MD [address] [place] [address] System Generated Attributed Clinician 04/10/23 documented as of this encounter
--- OUTSIDE RECORDS SUMMARY | 2025-01-16 18:22 | XMS_ITS | Encounter Summary ---
Author Organization [facility] Address [address] [place] [address] Care Team Providers Care Jelly Maker Name Role Phone Jamshid Sapp MD Unavailable [phone] Darío Medeiros MD Primary Care Provider [phone] Source Comments In the event that this is information that is protected by federal Confidentiality of Substance User Disorder Patient Records, 42 CFR Part 2 prohibits the unauthorized disclosure of these records.[facility] Encounter Details Date Type Department Care Team (Late st Contact Info) Description 05/16/2024 Orders Only [place] Hematology and Oncology [address] [phone] Jamshid Sapp MD [address] [place] [address] Social History Tobacco Use Types [...] Answer Date Recorded Are you concerned about [facility] a safe and reliable place [...] on file 02/18/2023 Are you concerned about [facility] ng a safe and reliable place to live? 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 Not on camryn e documented as of this encounter Plan of Treatment Upcoming Encounters Date Type Department Care Team (Late st Contact Info) Description 04/08/2025 11:10 AM TIE PULLER Outpatient Testing [facility] [address] [place] [phone] 3 month 04/08/2025 11:45 AM TIE PULLER Office Visit [facility] On[facility] [address] [phone] Jamshid Sapp MD [address] [place], [place] [phone] 3 month documented as of this encounter Results * (ABNORMAL) Haptoglobin (05/20/2024 10:36 AM TIE PULLER) Haptoglobin <30(L) 30 - 210 mg/dL 05/20/2024 8:10 PM TIE PULLER [facility] Blood VEIN SPECIMEN / Unknown Blood Collection / Unknown 05/20/2024 10:36 AM TIE PULLER 05/20/2024 10:53 AM TIE PULLER us Jamshid Sapp MD CHEMISTRY ORDERABLES Final R esult Performing Organization Address City/[facility]/ZIP Co de Phone Number [facility] Brittany Rice [address] [place] [address] * (ABNORMAL) LDH (05/20/2024 10:36 AM TIE PULLER) LDH 290(H) 0 - 271 units/L 05/20/2024 11:13 AM TIE PULLER [facility] Blood VEIN SPECIMEN / Unknown Blood Collection / Unknown 05/20/2024 10:36 AM TIE PULLER 05/20/2024 10:53 AM TIE PULLER us Jamshid Sapp MD CHEMISTRY ORDERABLES Final R esult Performing Organization Address [facility] Co de Phone Number [facility] [address] [place] [address] * (ABNORMAL) Reticulocyte Count (05/20/2024 10:36 AM TIE PULLER) Reticulocyte Count Percent 9.55(H) 0.50 - 2.50 % 05/20/2024 11:13 AM TIE PULLER [facility] Comment:Results checked Reticulocyte Count Absolute 286.50 No defined reference range 10 3/ L 05/20/2024 11:13 AM TIE PULLER [facility] Blood VEIN SPECIMEN / Unknown Blood Collection / Unknown 05/20/2024 10:36 AM TIE PULLER 05/20/2024 10:53 AM TIE PULLER us Jamshid Sapp MD HEMATOLOGY ORDERABLES Final Result Performing Organization Address [facility] Co de Phone Number [facility] [address] [place] [address] * (ABNORMAL) Comp Metabolic Panel (05/20/2024 10:36 AM TIE PULLER) Sodium 138 133 - 146 mmol/L 05/20/2024 11:13 AM TIE PULLER [facility] Potassium 4.3 3.5 - 5.1 mmol/L 05/20/2024 11:13 AM [facility] Chloride 101 98 - 109 mmol/L 05/20/2024 11:13 AM [facility] Carbon Dioxide 29 21 - 31 mmol/L 05/20/2024 11:13 AM [facility] Anion Gap 8 4 - 13 mmol/L 05/20/2024 11:13 AM [facility] Blood Urea Nitrogen 12 2 - 25 mg/dL 05/20/2024 11:13 AM [facility] Creatinine 0.94 0.60 - 1.30 mg/dL 05/20/2024 11:13 AM [facility] eGFRcr (CKD-EPI 2020) >90 >=60 mL/min/1. 73 m 05/20/2024 11:13 AM [facility] Calcium 9.9 8.3 - 10.5 mg/dL 05/20/2024 11:13 AM [facility] Glucose 78 65 - 100 mg/dL 05/20/2024 11:13 AM [facility] Protein, Total 7.4 6.4 - 8.9 g/dL 05/20/2024 11:13 AM [facility] Albumin 5.0 3.5 - 5.7 g/dL 05/20/2024 11:13 AM [facility] ALT 12 0 - 52 units/L 05/20/2024 11:13 AM [facility] Alkaline Phosphatase 53 34 - 104 units/L 05/20/2024 11:13 AM [facility] AST 17 0 - 39 units/L 05/20/2024 11:13 AM [facility] Bilirubin, Total 3.5(H) 0.0 - 1.0 mg/dL 05/20/2024 11:13 AM [facility] Patient Fasting? Nonfasting 05/20/2024 11:13 AM [facility] Blood VEIN SPECIMEN / Unknown Blood Collection / Unknown 05/20/2024 10:36 AM TIE PULLER 05/20/2024 10:53 AM TIE PULLER us Jamshid Sapp MD CHEMISTRY ORDERABLES Final R esult [facility] [address] [place] [address] * (ABNORMAL) CBC with Differential (05/20/2024 10:36 AM TIE PULLER) WBC 3.9 3.5 - 10.5 10 3/ L 05/20/2024 11:13 AM [facility]IE PULLER [facility] RBC 3.01(L) (Based on documented legal sex) 4.30-5.80 10 6/ L 05/20/2024 11:13 AM [facility]IE PULLER [facility] HGB 11.1(L) (Based on documented legal sex) 13.0-17.5 g/dL 05/20/2024 11:13 AM TIE PULLER [facility] HCT 34.2(L) (Based on documented legal sex) 38.0-50.0 % 05/20/2024 11:13 AM TIE PULLER [facility] MCV 113.6(H) 80.0 - 99.0 fL 05/20/2024 11:13 AM TIE PULLER [facility] MCH 36.9(H) 27.0 - 34.0 pg 05/20/2024 11:13 AM TIE PULLER [facility] MCHC 32.5 32.0 - 35.5 g/dL 05/20/2024 11:13 AM TIE PULLER [facility] RDW 12.6 11.0 - 15.0 % 05/20/2024 11:13 AM TIE PULLER [facility] PLT 177 150 - 400 10 3/ L 05/20/2024 11:13 AM TIE PULLER [facility] MPV 9.4 8.8 - 12.1 fL 05/20/2024 11:13 AM TIE PULLER [facility] Neutrophils 74.4(H) 34.0 - 73.0 % 05/20/2024 11:13 AM TIE PULLER [facility] Lymphocytes 16.8 15.0 - 50.0 % 05/20/2024 11:13 AM TIE PULLER [facility] Monocytes 7.2 1.0 - 15.0 % 05/20/2024 11:13 AM TIE PULLER [facility] Eosinophils 0.8 0.0 - 8.0 % 05/20/2024 11:13 AM [facility] Basophils 0.3 0.0 - 2.0 % 05/20/2024 11:13 AM [facility] Immature Granulocytes 0.5 No defined reference range % 05/20/2024 11:13 AM [facility] Comment:Immature Granulocyte s (IG) represents automated enumeration of Metamyelocytes, Myelocytes and Promyelocytes when IG is < 5%. Blasts are not included in IG and reported separately if present. Absolute Neutrophils 2.9 1.5 - 8.0 10 3/ L 05/20/2024 11:13 AM [facility] Absolute Lymphocytes 0.7(L) 1.0 - 4.0 10 3/ L 05/20/2024 11:13 AM [facility] Absolute Monocytes 0.3 0.2 - 1.0 10 3/ L 05/20/2024 11:13 AM [facility] Absolute Eosinophils 0.0 0.0 - 0.6 10 3/ L 05/20/2024 11:13 AM [facility] Absolute Basophils 0.0 0.0 - 0.3 10 3/ L 05/20/2024 11:13 AM [facility] Absolute Immature Granulocytes 0.0 0.00 - 0.10 10 3/ L 05/20/2024 11:13 AM [facility] Blood VEIN SPECIMEN / Unknown Blood Collection / Unknown 05/20/2024 10:36 AM TIE PULLER 05/20/2024 10:53 AM [facility] Narrative [facility] - 05/20/2024 11:13 AM [facility] Reference ranges for nonbinary/intersex or unspecified gender patients have not been established. Please refer to the following table for ranges established for cisgender patients and evaluate in the clinical context of the individual patient: https://labhandbook.tx.org/GenderX us Jamshid Sapp MD HEMATOLOGY ORDERABLES Final Result [facility] [address] [place] [address] documented in this encounter Visit Diagnoses Diagnosis Acquired hemolytic anemia ([facility]-HCC)- Primary Acquired hemolytic anemia, unspecified Macrocytic anemia Unspecified deficiency anemia documented in this encounter Care Teams Jelly Maker Relationship Specialty Start Date End Date Darío Medeiros MD [address] [place] [address] PCP - General Internal Medicine 04/25/23 Jamshid Sapp MD [address] [place] [address] System Generated Attributed Clinician 04/10/23 documented as of this encounter
--- OUTSIDE RECORDS SUMMARY | 2025-01-16 18:22 | XMS_ITS | Encounter Summary ---
Author Organization [facility] Address [address] [place] [address] Care Team Providers Care Inspector Hot Forgings Name Role Phone Jamshid Sapp MD Unavailable [phone] Darío Medeiros MD Primary Care Provider [phone] Source Comments In the event that this is information that is protected by federal Confidentiality of Substance User Disorder Patient Records, 42 CFR Part 2 prohibits the unauthorized disclosure of these records.[facility] Encounter Details Date Type Department Care Team (Late st Contact Info) Description 11/20/2023 Orders Only [place] Hematology and Oncology [address] [phone] Jamshid Sapp MD [address] [place] [address] Social History Tobacco Use Types [...] Answer Date Recorded Are you concerned about [facility] a safe and reliable place to [...] on file 02/18/2023 Are you concerned about [facility] ng a safe and reliable [...] st Contact Info) Description 04/08/2025 11:10 AM CONTACT LENS LATHE OPERATOR Outpatient Testing [facility] [address] [phone] 3 month 04/08/2025 11:45 AM CONTACT LENS LATHE OPERATOR Office Visit [facility] [address] [phone] Jamshid Sapp MD [address] [place], [place] [phone] 3 month documented as of this encounter Results * (ABNORMAL) Haptoglobin (11/21/2023 9:18 AM CDT) Haptoglobin <30(L) 30 - 210 mg/dL 11/21/2023 8:15 PM CDT [facility] Blood VEIN SPECIMEN / Unknown Blood Collection / Unknown 11/21/2023 9:18 AM CDT 11/21/2023 9:30 AM CDT us Jamshdi Sapp MD CHEMISTRY ORDERABLES Final R esult [facility] Brittany Rice [address] [place] [address] * LDH (11/21/2023 9:18 AM CDT) LDH 216 0 - 271 units/L 11/21/2023 9:46 AM CDT [facility] Blood VEIN SPECIMEN / Unknown Blood Collection / Unknown 11/21/2023 9:18 AM CDT 11/21/2023 9:30 AM CDT Jamshid Sapp MD CHEMISTRY ORDERABLES Final R esult Performing Organization Address [facility] Co de Phone Number [facility] [address] [place] [address] * (ABNORMAL) Reticulocyte Count (11/21/2023 9:18 AM CDT) Reticulocyte Count Percent 2.89(H) 0.50 - 2.50 % 11/21/2023 9:33 AM CDT [facility] Reticulocyte Count Absolute 95.10 No defined reference range 10 3/ L 11/21/2023 9:33 AM CDT [facility] Blood VEIN SPECIMEN / Unknown Blood Collection / Unknown 11/21/2023 9:18 AM CDT 11/21/2023 9:30 AM CDT Jamshid Sapp MD HEMATOLOGY ORDERABLES Final Result Performing Organization Address City/[facility]/ZIP Co de Phone Number [facility] [address] [place] [address] * (ABNORMAL) Comp Metabolic Panel (11/21/2023 9:18 AM CDT) Sodium 138 133 - 146 mmol/L 11/21/2023 9:46 AM CDT [facility] Potassium 4.2 3.5 - 5.1 mmol/L 11/21/2023 9:46 AM [facility] Chloride 102 98 - 109 mmol/L 11/21/2023 9:46 AM [facility] Carbon Dioxide 31 21 - 31 mmol/L 11/21/2023 9:46 AM [facility] Anion Gap 5 4 - 13 mmol/L 11/21/2023 9:46 AM [facility] Blood Urea Nitrogen 16 2 - 25 mg/dL 11/21/2023 9:46 AM [facility] Creatinine 0.90 0.60 - 1.30 mg/dL 11/21/2023 9:46 AM [facility] eGFRcr (CKD-EPI 2020) >90 >=60 mL/min/1.7 3 m 11/21/2023 9:46 AM [facility] Calcium 9.5 8.3 - 10.5 mg/dL 11/21/2023 9:46 AM [facility] Glucose 93 65 - 100 mg/dL 11/21/2023 9:46 AM [facility] Protein, Total 7.2 6.4 - 8.9 g/dL 11/21/2023 9:46 AM [facility] Albumin 4.8 3.5 - 5.7 g/dL 11/21/2023 9:46 AM [facility] ALT 15 0 - 52 units/L 11/21/2023 9:46 AM [facility] Alkaline Phosphatase 40 34 - 104 units/L 11/21/2023 9:46 AM [facility] AST 18 0 - 39 units/L 11/21/2023 9:46 AM [facility] Bilirubin, Total 1.9(H) 0.0 - 1.0 mg/dL 11/21/2023 9:46 AM [facility] Blood VEIN SPECIMEN / Unknown Blood Collection / Unknown 11/21/2023 9:18 AM CDT 11/21/2023 9:30 AM T us Jamshid Sapp MD CHEMISTRY ORDERABLES Final R esult [facility] [address] [place] [address] * (ABNORMAL) CBC with Differential (11/21/2023 9:18 AM CDT) WBC 3.1(L) 3.5 - 10.5 10 3/ L 11/21/2023 9:33 AM CDT [facility] RBC 3.29(L) (Based on documented legal sex) 4.30-5.80 10 6/ L 11/21/2023 9:33 AM CDT [facility] HGB 11.7(L) (Based on documented legal sex) 13.0-17.5 g/dL 11/21/2023 9:33 AM CDT [facility] HCT 35.9(L) (Based on documented legal sex) 38.0-50.0 % 11/21/2023 9:33 AM CDT [facility] MCV 109.0(H) 80.0 - 99.0 fL 11/21/2023 9:33 AM CDT [facility] MCH 35.6(H) 27.0 - 34.0 pg 11/21/2023 9:33 AM CDT [facility] MCHC 32.6 32.0 - 35.5 g/dL 11/21/2023 9:33 AM CDT [facility] RDW 11.6 11.0 - 15.0 % 11/21/2023 9:33 AM CDT [facility] PLT 153 150 - 400 10 3/ L 11/21/2023 9:33 AM CDT [facility] MPV 9.0 8.8 - 12.1 fL 11/21/2023 9:33 AM CDT [facility] Neutrophils 63.0 34.0 - 73.0 % 11/21/2023 9:33 AM CDT [facility] Lymphocytes 24.0 15.0 - 50.0 % 11/21/2023 9:33 AM CDT [facility] Monocytes 10.0 1.0 - 15.0 % 11/21/2023 9:33 AM CDT [facility] Eosinophils 2.0 0.0 - 8.0 % 11/21/2023 9:33 AM CDT [facility] Basophils 1.0 0.0 - 2.0 % 11/21/2023 9:33 AM CDT [facility] Immature Granulocytes 0.0 No defined reference range % 11/21/2023 9:33 AM CDT [facility] Comment:Immature Granulocyte s (IG) represents automated enumeration of Metamyelocytes, Myelocytes and Promyelocytes when IG is < 5%. Blasts are not included in IG and reported separately if present. Absolute Neutrophils 2.0 1.5 - 8.0 10 3/ L 11/21/2023 9:33 AM CDT [facility] Absolute Lymphocytes 0.8(L) 1.0 - 4.0 10 3/ L 11/21/2023 9:33 AM CDT [facility] Absolute Monocytes 0.3 0.2 - 1.0 10 3/ L 11/21/2023 9:33 AM CDT [facility] Absolute Eosinophils 0.1 0.0 - 0.6 10 3/ L 11/21/2023 9:33 AM CDT [facility] Absolute Basophils 0.0 0.0 - 0.3 10 3/ L 11/21/2023 9:33 AM CDT [facility] Absolute Immature Granulocytes 0.0 0.00 - 0.10 10 3/ L 11/21/2023 9:33 AM CDT [facility] Differential Type Auto 024 9:33 AM CDT [facility] Blood VEIN SPECIMEN / Unknown Blood Collection / Unknown 11/21/2023 9:18 AM CDT 11/21/2023 9:30 AM CDT us Jamshid Sapp MD HEMATOLOGY ORDERABLES Final Result [facility] [address] [place] [address] documented in this encounter Visit Diagnoses Diagnosis Acquired hemolytic anemia ([facility]-HCC)- Primary Acquired hemolytic anemia, unspecified documented in this encounter Additional Health Concerns Infection Onset Date Last Indicated Resolved Time Rule-out C. diff 04/18/2024 05/20/2024 04/19/2024 7:26 PM CONTACT LENS LATHE OPERATOR documented as of this encounter Care Teams Inspector Hot Forgings Relationship Specialty Start Date End Date Darío Medeiros MD [address] [place] [address] PCP - General Internal Medicine 04/25/23 Jamshid Sapp MD [address] [place], [place] [id number] System Generated Attributed Clinician 04/10/23 documented as of this encounter
--- OUTSIDE RECORDS SUMMARY | 2025-01-16 18:22 | XMS_ITS | Encounter Summary ---
Author Organization [facility] Address [address] [place] [address] Care Team Providers Care Global Risk Management Director Name Role Phone Jamshid Sapp MD Unavailable [phone] Darío Medeiros MD Primary Care Provider Source Comments In the event that this is information that is protected by federal Confidentiality of Substance User Disorder Patient Records, 42 CFR Part 2 prohibits the unauthorized disclosure of these records.[facility] Reason for Visit * Reason Comments Appointment Encounter Details Date Type Department Care Team (Late st Contact Info) Description 11/28/2024 Telephone [place] [facility] [address] [phone] Jamshid Sapp MD [address] [place] [address] Appointment Social History Tobacco Use Types Packs/Day [...] Answer Date Recorded [facility] you [facility] [...] on file 02/18/2023 Are you concerned about [place] ng a safe and reliable place to live? 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 Sapp on 12/22/24 as she will not be in the office that day. Left main call back number. documented in this encounter Plan of Treatment Upcoming Encounters Date Type Department Care Team (Late st Contact Info) Description 04/08/2025 11:10 AM SITE OPERATIONS MANAGER Outpatient Testing [facility] [address] [phone] 3 month 04/08/2025 11:45 AM SITE OPERATIONS MANAGER Office Visit [facility] [address] [phone] [place] [address] [place] [address] [place] [address] 3 month documented as of this encounter Visit Diagnoses Not on filedocumented in this encounter Care Teams Global Risk Management Director Relationship Specialty Start Date End Date Darío Medeiros MD [address] [place] [address] PCP - General Internal Medicine 04/25/23 Jamshid Sapp MD [address] [place] [address] System Generated Attributed Clinician 04/10/23 documented as of this encounter
--- OUTSIDE RECORDS SUMMARY | 2025-01-16 18:22 | XMS_ITS | Clinical Summary ---
Author Organization [facility] Address [address] [place] [address] Care Team Providers Care Weather Forcaster Name Role Phone Wade Rhodes MD Primary Care Provider Allergies No known active allergies Medications No known medications Family History Medical History Relation Name Comments Heart Condition Father NM 52 Lipids Father Relation Name Status Comments Father Social History Tobacco Use Types Packs/Day Years Used Date Smoking Tobacco: Passive Smo ke Exposure - Never Smoker Comments:social when he goes out Alcohol Use Standard Drinks/Week Comments Not Asked 0 (1 standard drink = 0.6 oz pur e alcohol) Sex and Gender Information Value Date Recorded Sex Assigned at Not on file Legal Sex Male 9:48 AM DESIGN CELL ENGINEER Gender Identity Not on file Sexual Orientation Not on file 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 Not on file Last Filed Vital Signs Vital Sign Reading Time Taken Comments Blood Pressure 128/88 08/11/2008 8:53 AM CDT Pulse 60 04/06/2008 2:07 PM DESIGN CELL ENGINEER Temperature 36.4 C (97.6 F) 08/11/2008 8:53 AM CDT Respiratory Rate - - Oxygen Saturation - - Inhaled Oxygen Concentration - - Weight 70.8 kg (156 lb) 08/11/2008 8:53 AM CDT Height - - Body Mass Index - - Plan of Treatment Health Maintenance Due Date Last Done Comments DTaP/Tdap/Td Vaccines (1 - Tdap) 2004 CHOLESTEROL SCREENING 2020 04/06/2008 FLU VACCINE (#1) 12/29/2024 HPV VACCINE Aged Out No longer eligi ble based on patient's age to complete this topic Pneumococcal: Pediatric/ Hig h Risk Adult 18-64 Aged Out No longer eligible b ased on patient's age to complete this topic Procedures Procedure Name Priority Date/Time Associated Diagnosis Comments LIPID PANEL Routine 04/06/2008 2:41 PM DESIGN CELL ENGINEER Screening for Lipoid Disorders from Last 3 Months or Most Recently Relevant to Health Maintenance Results * CARDIAC RISK, BL (04/06/2008 2:41 PM DESIGN CELL ENGINEER) CHOLESTEROL 171 120 - 200 MG/DL [facility] TRIGLYCERIDE 116 <150 MG/DL [facility] HDL CHOLESTEROL 40 >40 MG/DL [facility] CHOL/HDL 4.3 [facility] LDL CHOLESTEROL 108 MG/DL [facility] 04/06/2008 2:41 PM DESIGN CELL ENGINEER 04/06/2008 11:09 PM DESIGN CELL ENGINEER us Wade Rhodes MD LAB BLOOD Final Resul t [facility] [address] [place] [address] from Last 3 Months or Most Recently Relevant to Health Maintenance Insurance PPO Care Teams Weather Forcaster Relationship Specialty Start Date End Date Wade Rhodes MD [address] [place] [address] [email or web address] PCP - General 04/06/08
--- OUTSIDE RECORDS SUMMARY | 2025-01-16 18:22 | XMS_ITS | Encounter Summary ---
Author Organization [facility] Address [address] [place] [address] Care Team Providers Care Tour Consultant Name Role Phone Jamshid Sapp MD Unavailable [phone] Darío Medeiros MD Primary Care Provider [phone] Source Comments In the event that this is information that is protected by federal Confidentiality of Substance User Disorder Patient Records, 42 CFR Part 2 prohibits the unauthorized disclosure of these records.[facility] Encounter Details Date Type Department Care Team (Late st Contact Info) Description 04/26/2023 Orders Only [place] [facility] [address] [phone] Jamshid Sapp MD [address] [place] [address] Social History Tobacco Use Types Packs/Day Years Used Date Smoking Tobacco: Every Day Smokeless Tobacco: Never Alcohol Use Standard Drinks/Week Comments Yes 0 (1 standard drink = 0.6 oz pure alcohol) Cut back significantly. On average < 1 bottle of wine a week. 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 Not on file Not on camryn e documented as of this encounter Plan of Treatment Upcoming Encounters Date Type Department Care Team (Late st Contact Info) Description 04/08/2025 11:10 AM RACKING MACHINE OPERATOR Outpatient Testing [place] [facility] [address] [place] [phone] 3 month 04/08/2025 11:45 AM RACKING MACHINE OPERATOR Office Visit [facility] [address] [place] [phone] Jamshid Sapp MD [address] [place] [phone] 3 month documented as of this encounter Results * (ABNORMAL) Reticulocyte Count (08/22/2023 10:34 AM CDT) Reticulocyte Count Percent 5.47(H) 0.50 - 2.50 % 08/22/2023 10:51 AM CDT [facility] Reticulocyte Count Absolute 197.50 No defined reference range 10 3/ L 08/22/2023 10:51 AM CDT [facility] Blood VEIN SPECIMEN / Unknown Blood Collection / Unknown 08/22/2023 10:34 AM CDT 08/22/2023 10:48 AM CDT us Jamshid Sapp MD HEMATOLOGY ORDERABLES Final Result Performing Organization Address City/[facility]/ZIP Co de Phone Number [facility] [address] [place] [address] * LDH (08/22/2023 10:34 AM CDT) LDH 229 0 - 271 units/L 08/22/2023 11:06 AM CDT [facility] Blood VEIN SPECIMEN / Unknown Blood Collection / Unknown 08/22/2023 10:34 AM CDT 08/22/2023 10:48 AM CDT us Jamshid Sapp MD CHEMISTRY ORDERABLES Final R esult Performing Organization Address [facility] Co de Phone Number [facility] [address] [place] [address] * (ABNORMAL) Haptoglobin (08/22/2023 10:34 AM CDT) Haptoglobin <30(L) 30 - 210 mg/dL 08/22/2023 8:55 PM CDT [facility] Blood VEIN SPECIMEN / Unknown Blood Collection / Unknown 08/22/2023 10:34 AM CDT 08/22/2023 10:48 AM CDT us Jamshid Sapp MD CHEMISTRY ORDERABLES Final R esult Performing Organization Address City/[facility]/ZIP Co de Phone Number [facility] Brittany Rice [address] [place] [address] * (ABNORMAL) CBC with Differential (08/22/2023 10:34 AM CDT) WBC 4.4 3.5 - 10.5 10 3/ L 08/22/2023 10:51 AM CDT [facility] RBC 3.61(L) (Based on documented legal sex) 4.30-5.80 10 6/ L 08/22/2023 10:51 AM CDT [facility] HGB 12.3(L) (Based on documented legal sex) 13.0-17.5 g/dL 08/22/2023 10:51 AM CDT [facility] HCT 38.5 (Based on documented legal sex) 38.0-50.0 % 08/22/2023 10:51 AM CDT [facility] MCV 107.0(H) 80.0 - 99.0 fL 08/22/2023 10:51 AM CDT [facility] MCH 34.1(H) 27.0 - 34.0 pg 08/22/2023 10:51 AM CDT [facility] MCHC 31.9(L) 32.0 - 35.5 g/dL 08/22/2023 10:51 AM T [facility] RDW 12.5 11.0 - 15.0 % 08/22/2023 10:51 AM CDT [facility] PLT 226 150 - 400 10 3/ L 08/22/2023 10:51 AM CDT [facility] MPV 9.1 8.8 - 12.1 fL 08/22/2023 10:51 AM CDT [facility] Neutrophils 65.0 34.0 - 73.0 % 08/22/2023 10:51 AM CDT [facility] Lymphocytes 24.0 15.0 - 50.0 % 08/22/2023 10:51 AM CDT [facility] Monocytes 8.0 1.0 - 15.0 % 08/22/2023 10:51 AM CDT [facility] Eosinophils 2.0 0.0 - 8.0 % 08/22/2023 10:51 AM CDT [facility] Basophils 1.0 0.0 - 2.0 % 08/22/2023 10:51 AM CDT [facility] Immature Granulocytes 0.0 No defined reference range % 08/22/2023 10:51 AM T [facility] Comment:Immature Granulocyte s (IG) represents automated enumeration of Metamyelocytes, Myelocytes and Promyelocytes when IG is < 5%. Blasts are not included in IG and reported separately if present. Absolute Neutrophils 2.9 1.5 - 8.0 10 3/ L 08/22/2023 10:51 AM CDT [facility] Absolute Lymphocytes 1.1 1.0 - 4.0 10 3/ L 08/22/2023 10:51 AM CDT [facility] Absolute Monocytes 0.3 0.2 - 1.0 10 3/ L 08/22/2023 10:51 AM CDT [facility] Absolute Eosinophils 0.1 0.0 - 0.6 10 3/ L 08/22/2023 10:51 AM CDT [facility] Absolute Basophils 0.0 0.0 - 0.3 10 3/ L 08/22/2023 10:51 AM CDT [facility] Absolute Immature Granulocytes 0.0 0.00 - 0.10 10 3/ L 08/22/2023 10:51 AM CDT [facility] Differential Type Auto 024 10:51 AM CDT [facility] Blood VEIN SPECIMEN / Unknown Blood Collection / Unknown 08/22/2023 10:34 AM CDT 08/22/2023 10:48 AM CDT us Jamshid Sapp MD HEMATOLOGY ORDERABLES Final Result [facility] [address] [place] [address] * (ABNORMAL) Comprehensive Metabolic Panel (08/22/2023 10:34 AM CDT) Sodium 137 133 - 146 mmol/L 08/22/2023 11:06 AM CDT [facility] Potassium 4.2 3.5 - 5.1 mmol/L 08/22/2023 11:06 AM CDT [facility] Chloride 102 98 - 109 mmol/L 08/22/2023 11:06 AM CDT [facility] Carbon Dioxide 29 21 - 31 mmol/L 08/22/2023 11:06 AM CDT [facility] Anion Gap 6 4 - 13 mmol/L 08/22/2023 11:06 AM CDT [facility] Blood Urea Nitrogen 17 2 - 25 mg/dL 08/22/2023 11:06 AM [facility] Creatinine 0.92 0.60 - 1.30 mg/dL 08/22/2023 11:06 AM [facility] eGFRcr (CKD-EPI 2020) >90 >=60 mL/min/1.7 3 m 08/22/2023 11:06 AM [facility] Calcium 10.0 8.3 - 10.5 mg/dL 08/22/2023 11:06 AM [facility] Glucose 89 65 - 100 mg/dL 08/22/2023 11:06 AM [facility] Protein, Total 7.9 6.4 - 8.9 g/dL 08/22/2023 11:06 AM [facility] Albumin 5.4 3.5 - 5.7 g/dL 08/22/2023 11:06 AM [facility] ALT 29 0 - 52 units/L 08/22/2023 11:06 AM [facility] Alkaline Phosphatase 58 34 - 104 units/L 08/22/2023 11:06 AM [facility] AST 18 0 - 39 units/L 08/22/2023 11:06 AM [facility] Bilirubin, Total 3.2(H) 0.0 - 1.0 mg/dL 08/22/2023 11:06 AM [facility] Blood VEIN SPECIMEN / Unknown Blood Collection / Unknown 08/22/2023 10:34 AM T 08/22/2023 10:48 AM T us Jamshid Sapp MD CHEMISTRY ORDERABLES Final R esult [facility] [address] [place] [address] * (ABNORMAL) Reticulocyte Count (05/23/2023 10:11 AM RACKING MACHINE OPERATOR) Reticulocyte Count Percent 4.36(H) 0.10 - 1.00 % 05/23/2023 10:25 AM RACKING MACHINE OPERATOR [facility] Reticulocyte Count Absolute 152.60 No defined reference range 10 3/ L 05/23/2023 10:25 AM [facility] Blood VEIN SPECIMEN / Unknown Blood Collection / Unknown 05/23/2023 10:11 AM RACKING MACHINE OPERATOR 05/23/2023 10:22 AM RACKING MACHINE OPERATOR us Jamshid Sapp MD HEMATOLOGY ORDERABLES Final Result Performing Organization Address City/[facility] Co de Phone Number [facility] [address] [place] [address] * LDH (05/23/2023 10:11 AM RACKING MACHINE OPERATOR) Pathologist [facility] LDH 225 0 - 271 units/L 05/23/2023 10:42 AM [facility] Blood VEIN SPECIMEN / Unknown Blood Collection / Unknown 05/23/2023 10:11 AM RACKING MACHINE OPERATOR 05/23/2023 10:22 AM RACKING MACHINE OPERATOR Jamshid Sapp MD CHEMISTRY ORDERABLES Final R esult Performing Organization Address [facility] de Phone Number [facility] [address] [place] [address] * (ABNORMAL) Haptoglobin (05/23/2023 10:11 AM RACKING MACHINE OPERATOR) Pathologist [facility] Haptoglobin <30(L) 30 - 210 mg/dL 05/23/2023 10:29 PM RACKING MACHINE OPERATOR [facility] Blood VEIN SPECIMEN / Unknown Blood Collection / Unknown 05/23/2023 10:11 AM RACKING MACHINE OPERATOR 05/23/2023 10:22 AM RACKING MACHINE OPERATOR us Jamshid Sapp MD CHEMISTRY ORDERABLES Final R esult Performing Organization Address [facility] Co de Phone Number [facility] Brittany Rice [address] [place] [address] * (ABNORMAL) CBC with Differential (05/23/2023 10:11 AM RACKING MACHINE OPERATOR) WBC 3.2(L) 3.5 - 10.5 10 3/ L 05/23/2023 10:25 AM [facility] RBC 3.50(L) (Based on documented legal sex) 4.30-5.80 10 6/ L 05/23/2023 10:25 AM [facility] HGB 12.3(L) (Based on documented legal sex) 13.0-17.5 g/dL 05/23/2023 10:25 AM [facility] HCT 37.6(L) (Based on documented legal sex) 38.0-50.0 % 05/23/2023 10:25 AM [facility] MCV 107.0(H) 80.0 - 99.0 fL 05/23/2023 10:25 AM [facility] MCH 35.1(H) 27.0 - 34.0 pg 05/23/2023 10:25 AM [facility] MCHC 32.7 32.0 - 35.5 g/dL 05/23/2023 10:25 AM [facility] RDW 11.9 11.0 - 15.0 % 05/23/2023 10:25 AM [facility] PLT 204 140 - 390 10 3/ L 05/23/2023 10:25 AM [facility] MPV 8.9 8.8 - 12.1 fL 05/23/2023 10:25 AM [facility] Neutrophils 62.0 34.0 - 73.0 % 05/23/2023 10:25 AM [facility] Lymphocytes 26.0 15.0 - 50.0 % 05/23/2023 10:25 AM [facility] Monocytes 10.0 1.0 - 15.0 % 05/23/2023 10:25 AM [facility] Eosinophils 1.0 0.0 - 8.0 % 05/23/2023 10:25 AM [facility] Basophils 1.0 0.0 - 2.0 % 05/23/2023 10:25 AM [facility] Immature Granulocytes 0.0 No defined reference range % 05/23/2023 10:25 AM [facility] Comment:Immature Granulocyte s (IG) represents automated enumeration of Metamyelocytes, Myelocytes and Promyelocytes when IG is < 5%. Blasts are not included in IG and reported separately if present. Absolute Neutrophils 2.0 1.5 - 8.0 10 3/ L 05/23/2023 10:25 AM [facility] Absolute Lymphocytes 0.8(L) 1.0 - 4.0 10 3/ L 05/23/2023 10:25 AM [facility] Absolute Monocytes 0.3 0.2 - 1.0 10 3/ L 05/23/2023 10:25 AM [facility] Absolute Eosinophils 0.0 0.0 - 0.6 10 3/ L 05/23/2023 10:25 AM RACKING MACHINE OPERATOR [facility] Absolute Basophils 0.0 0.0 - 0.3 10 3/ L 05/23/2023 10:25 AM [facility] Absolute Immature Granulocytes 0.0 0.00 - 0.10 10 3/ L 05/23/2023 10:25 AM [facility] Differential Type Auto 024 10:25 AM [facility] Blood VEIN SPECIMEN / Unknown Blood Collection / Unknown 05/23/2023 10:11 AM RACKING MACHINE OPERATOR 05/23/2023 10:22 AM [facility] us Jamshid Sapp MD HEMATOLOGY ORDERABLES Final Result [facility] [address] [place] [address] * (ABNORMAL) Comprehensive Metabolic Panel (05/23/2023 10:11 AM [facility]) Sodium 138 133 - 146 mmol/L 05/23/2023 10:42 AM [facility] Potassium 4.1 3.5 - 5.1 mmol/L 05/23/2023 10:42 AM [facility] Chloride 103 98 - 109 mmol/L 05/23/2023 10:42 AM [facility] Carbon Dioxide 30 21 - 31 mmol/L 05/23/2023 10:42 AM [facility] Anion Gap 5 4 - 13 mmol/L 05/23/2023 10:42 AM [facility] Blood Urea Nitrogen 18 2 - 25 mg/dL 05/23/2023 10:42 AM [facility] Creatinine 0.90 0.60 - 1.30 mg/dL 05/23/2023 10:42 AM [facility] eGFRcr (CKD-EPI 2020) >90 >=60 mL/min/1.7 3 m 05/23/2023 10:42 AM [facility] Calcium 9.4 8.3 - 10.5 mg/dL 05/23/2023 10:42 AM [facility] Glucose 71 65 - 100 mg/dL 05/23/2023 10:42 AM [facility] Protein, Total 7.4 6.4 - 8.9 g/dL 05/23/2023 10:42 AM [facility] Albumin 4.9 3.5 - 5.7 g/dL 05/23/2023 10:42 AM [facility] ALT 28 0 - 52 units/L 05/23/2023 10:42 AM [facility] Alkaline Phosphatase 54 34 - 104 units/L 05/23/2023 10:42 AM [facility] AST 20 0 - 39 units/L 05/23/2023 10:42 AM [facility] Bilirubin, Total 2.0(H) 0.0 - 1.0 mg/dL 05/23/2023 10:42 AM [facility] Blood VEIN SPECIMEN / Unknown Blood Collection / Unknown 05/23/2023 10:11 AM RACKING MACHINE OPERATOR 05/23/2023 10:22 AM RACKING MACHINE OPERATOR us aJmshid Sapp MD CHEMISTRY ORDERABLES Final R esult [facility] [address] [place] [address] documented in this encounter Visit Diagnoses Diagnosis Acquired hemolytic anemia (CMS-HCC)- Primary Acquired hemolytic anemia, unspecified documented in this encounter Additional Health Concerns Infection Onset Date Last Indicated Resolved Time Rule-out C. diff 04/18/2024 05/20/2024 04/19/2024 7:26 PM RACKING MACHINE OPERATOR documented as of this encounter Care Teams Tour Consultant Relationship Specialty Start Date End Date Darío Medeiros MD [address] [place] [address] PCP - General Internal Medicine 04/25/23 Jamshid Sapp MD [address] [place] [address] System Generated Attributed Clinician 04/10/23 documented as of this encounter
--- OUTSIDE RECORDS SUMMARY | 2025-01-16 18:22 | XMS_ITS | Encounter Summary ---
Author Organization [facility] Address [address] [place] [address] Care Team Providers Care Technical Engineer Name Role Phone Jamshid Sapp MD Unavailable [phone] Darío Medeiros MD Primary Care Provider [phone] Source Comments In the event that this is information that is protected by federal Confidentiality of Substance User Disorder Patient Records, 42 CFR Part 2 prohibits the unauthorized disclosure of these records.[facility] Encounter Details Date Type Department Care Team (Late st Contact Info) Description 02/18/2024 Orders Only [place] Hematology and Oncology [address] [place] [address] Jamshid Sapp MD [address] [place] [address] Social History Tobacco Use Types [...] on file 02/18/2023 Are you concerned about [facility] a safe and reliable place to live? 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 Not on camryn e documented as of this encounter Plan of Treatment Upcoming Encounters Date Type Department Care Team (Late st Contact Info) Description 04/08/2025 11:10 AM ASSOCIATE SALES Outpatient Testing [place] [facility] [address] [place] [phone] 3 month 04/08/2025 11:45 AM ASSOCIATE SALES Office Visit [place] [facility] [address] [phone] [place] [address] [place] [address] [phone] 3 month documented as of this encounter Results * (ABNORMAL) Reticulocytes (02/20/2024 9:20 AM CDT) Reticulocyte Count Percent 7.94(H) 0.50 - 2.50 % 02/20/2024 9:34 AM CDT [facility] Reticulocyte Count Absolute 228.70 No defined reference range 10 3/ L 02/20/2024 9:34 AM CDT [facility] Blood VEIN SPECIMEN / Unknown Blood Collection / Unknown 02/20/2024 9:20 AM CDT 02/20/2024 9:32 AM CDT us Jamshid Sapp MD HEMATOLOGY ORDERABLES Final Result Performing Organization Address [facility] Co de Phone Number [facility] [address] [place] [address] * (ABNORMAL) Haptoglobin (02/20/2024 9:20 AM CDT) Haptoglobin <30(L) 30 - 210 mg/dL 02/20/2024 8:42 PM CDT [facility] Blood VEIN SPECIMEN / Unknown Blood Collection / Unknown 02/20/2024 9:20 AM CDT 02/20/2024 9:32 AM CDT us Jamshid Sapp MD CHEMISTRY ORDERABLES Final R esult Performing Organization Address [facility] Co de Phone Number [facility] Brittany Rice [address] [place] [address] * LDH (02/20/2024 9:20 AM CDT) Pathologist [facility] LDH 267 0 - 271 units/L 02/20/2024 9:48 AM CDT [facility] Blood VEIN SPECIMEN / Unknown Blood Collection / Unknown 02/20/2024 9:20 AM CDT 02/20/2024 9:32 AM CDT us Jamshid Sapp MD CHEMISTRY ORDERABLES Final R esult Performing Organization Address [facility] Co de Phone Number [facility] [address] [place] [address] * (ABNORMAL) Comp Metabolic Panel (02/20/2024 9:20 AM CDT) Sodium 139 133 - 146 mmol/L 02/20/2024 9:48 AM CDT [facility] Potassium 4.1 3.5 - 5.1 mmol/L 02/20/2024 9:48 AM T [facility] Chloride 105 98 - 109 mmol/L 02/20/2024 9:48 AM [facility] Carbon Dioxide 28 21 - 31 mmol/L 02/20/2024 9:48 AM T [facility] Anion Gap 6 4 - 13 mmol/L 02/20/2024 9:48 AM [facility] Blood Urea Nitrogen 14 2 - 25 mg/dL 02/20/2024 9:48 AM [facility] Creatinine 0.92 0.60 - 1.30 mg/dL 02/20/2024 9:48 AM [facility] eGFRcr (CKD-EPI 2020) >90 >=60 mL/min/1.7 3 m 02/20/2024 9:48 AM [facility] Calcium 9.5 8.3 - 10.5 mg/dL 02/20/2024 9:48 AM [facility] Glucose 90 65 - 100 mg/dL 02/20/2024 9:48 AM [facility] Protein, Total 6.9 6.4 - 8.9 g/dL 02/20/2024 9:48 AM [facility] Albumin 4.8 3.5 - 5.7 g/dL 02/20/2024 9:48 AM [facility] ALT 14 0 - 52 units/L 02/20/2024 9:48 AM [facility] Alkaline Phosphatase 46 34 - 104 units/L 02/20/2024 9:48 AM [facility] AST 16 0 - 39 units/L 02/20/2024 9:48 AM [facility] Bilirubin, Total 2.6(H) 0.0 - 1.0 mg/dL 02/20/2024 9:48 AM [facility] Blood VEIN SPECIMEN / Unknown Blood Collection / Unknown 02/20/2024 9:20 AM CDT 02/20/2024 9:32 AM CDT us Jamshid Sapp MD CHEMISTRY ORDERABLES Final R esult [facility] [address] [place] [address] * (ABNORMAL) CBC with Differential (02/20/2024 9:20 AM CDT) WBC 2.9(L) 3.5 - 10.5 10 3/ L 02/20/2024 9:34 AM CDT [facility] RBC 2.88(L) (Based on documented legal sex) 4.30-5.80 10 6/ L 02/20/2024 9:34 AM CDT [facility] HGB 10.5(L) (Based on documented legal sex) 13.0-17.5 g/dL 02/20/2024 9:34 AM CDT [facility] HCT 33.0(L) (Based on documented legal sex) 38.0-50.0 % 02/20/2024 9:34 AM CDT [facility] MCV 115.0(H) 80.0 - 99.0 fL 02/20/2024 9:34 AM CDT [facility] MCH 36.5(H) 27.0 - 34.0 pg 02/20/2024 9:34 AM CDT [facility] MCHC 31.8(L) 32.0 - 35.5 g/dL 02/20/2024 9:34 AM CDT [facility] RDW 12.5 11.0 - 15.0 % 02/20/2024 9:34 AM CDT [facility] PLT 167 150 - 400 10 3/ L 02/20/2024 9:34 AM CDT [facility] MPV 9.3 8.8 - 12.1 fL 02/20/2024 9:34 AM CDT [facility] Neutrophils 66.0 34.0 - 73.0 % 02/20/2024 9:34 AM CDT [facility] Lymphocytes 22.0 15.0 - 50.0 % 02/20/2024 9:34 AM CDT [facility] Monocytes 8.0 1.0 - 15.0 % 02/20/2024 9:34 AM CDT [facility] Eosinophils 3.0 0.0 - 8.0 % 02/20/2024 9:34 AM CDT [facility] Basophils 1.0 0.0 - 2.0 % 02/20/2024 9:34 AM CDT [facility] Immature Granulocytes 0.0 No defined reference range % 02/20/2024 9:34 AM T [facility] Comment:Immature Granulocyte s (IG) represents automated enumeration of Metamyelocytes, Myelocytes and Promyelocytes when IG is < 5%. Blasts are not included in IG and reported separately if present. Absolute Neutrophils 1.9 1.5 - 8.0 10 3/ L 02/20/2024 9:34 AM T [facility] Absolute Lymphocytes 0.6(L) 1.0 - 4.0 10 3/ L 02/20/2024 9:34 AM T [facility] Absolute Monocytes 0.2 0.2 - 1.0 10 3/ L 02/20/2024 9:34 AM T [facility] Absolute Eosinophils 0.1 0.0 - 0.6 10 3/ L 02/20/2024 9:34 AM T [facility] Absolute Basophils 0.0 0.0 - 0.3 10 3/ L 02/20/2024 9:34 AM T [facility] Absolute Immature Granulocytes 0.0 0.00 - 0.10 10 3/ L 02/20/2024 9:34 AM T [facility] Differential Type Auto 024 9:34 AM T [facility] Blood VEIN SPECIMEN / Unknown Blood Collection / Unknown 02/20/2024 9:20 AM CDT 02/20/2024 9:32 AM CDT us Jamshid Sapp MD HEMATOLOGY ORDERABLES Final Result [facility] [address] [place] [address] documented in this encounter Visit Diagnoses Diagnosis Acquired hemolytic anemia ([facility])- Primary Acquired hemolytic anemia, unspecified documented in this encounter Additional Health Concerns Infection Onset Date Last Indicated Resolved Time Rule-out C. diff 04/18/2024 05/20/2024 04/19/2024 7:26 PM ASSOCIATE SALES documented as of this encounter Care Teams Technical Engineer Relationship Specialty Start Date End Date Darío Medeiros MD [address] [place] [address] PCP - General Internal Medicine 04/25/23 Jamshid Sapp MD [address] [place] [address] System Generated Attributed Clinician 04/10/23 documented as of this encounter
--- OUTSIDE RECORDS SUMMARY | 2025-01-16 18:22 | XMS_ITS | Encounter Summary ---
Author Organization [facility] Address [address] [place] [address] Care Team Providers Care Deputy General Counsel Name Role Phone Gloria Carlos MD Primary Care Provider [phone] Jamshid Sapp MD Unavailable [phone] Darío Medeiros MD Primary Care Provider [phone] Source Comments In the event that this is information that is protected by federal Confidentiality of Substance User Disorder Patient Records, 42 CFR Part 2 prohibits the unauthorized disclosure of these records.[facility] Encounter Details Date Type Department Care Team (Late st Contact Info) Description 02/26/2023 Procedure Pass [place] Radiology [address] [place] [address] Social History Tobacco Use Types Packs/Day Years [...] on file 02/18/2023 Are you concerned about [facility] a safe and reliable place to live? 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 on file Not on camryn e documented as of this encounter Plan of Treatment Upcoming Encounters Date Type Department Care Team (Late st Contact Info) Description 04/08/2025 11:10 AM NURSE BEHAVIORAL HEALTH CARE Outpatient Testing [place] [facility]ology [facility] [address] [place] [phone] 3 month 04/08/2025 11:45 AM NURSE BEHAVIORAL HEALTH CARE Office Visit [place] [facility]ology [facility] On[facility] [address] [place] [phone] Jamshid Sapp MD [address] [place], [place] [phone] 3 month documented as of this encounter Visit Diagnoses Not on filedocumented in this encounter Additional Health Concerns Infection Onset Date Last Indicated Resolved Time Rule-out C. diff 04/18/2024 05/20/2024 04/19/2024 7:26 PM NURSE BEHAVIORAL HEALTH CARE documented as of this encounter Care Teams Deputy General Counsel Relationship Specialty Start Date End Date Gloria Carlos MD [address] [place] [address] PCP - General 02/09/14 04/24/23 Darío Medeiros MD [address] [place] [address] PCP - General Internal Medicine 04/25/23 Jamshid Sapp MD [address] [place] [address] System Generated Attributed Clinician 04/10/23 documented as of this encounter
--- OUTSIDE RECORDS SUMMARY | 2025-01-16 18:22 | XMS_ITS | Encounter Summary ---
Author Organization [facility] Address [address] [place] [address] Care Team Providers Care Cattyman Name Role Phone Gloria Carlos MD Primary Care Provider [phone] Jamshid Sapp MD Unavailable [phone] Darío Medeiros MD Primary Care Provider [phone] Source Comments In the event that this is information that is protected by federal Confidentiality of Substance User Disorder Patient Records, 42 CFR Part 2 prohibits the unauthorized disclosure of these records.[facility] Encounter Details Date Type Department Care Team (Late st Contact Info) Description 04/06/2023 Orders Only [place] Hematology and Oncology [facility] [address] [phone] Jamshid Sapp MD [address] [place] [address] Social History Tobacco Use Types [...] Date Recorded Are you concerned about [facility] ng a safe and reliable place to [...] file 02/18/2023 Are you concerned about [facility] ng a safe and reliable place to [...] st Contact Info) Description 04/08/2025 11:10 AM VICE ADMIRAL Outpatient Testing [place] [facility] [address] [place] [phone] 3 month 04/08/2025 11:45 AM VICE ADMIRAL Office Visit [place] [facility] [address] [place] [phone] [place] [address] [place] [address] 3 month documented as of this encounter Results * (ABNORMAL) Haptoglobin (04/25/2023 8:14 AM VICE ADMIRAL) Haptoglobin <30(L) 30 - 210 mg/dL 04/25/2023 7:[address] [facility] Blood VEIN SPECIMEN / Unknown Blood Collection / Unknown 04/25/2023 8:14 AM VICE ADMIRAL 04/25/2023 8:21 AM VICE ADMIRAL us Jamshid Sapp MD CHEMISTRY ORDERABLES Final R esult Performing Organization Address [facility]/ZIP Co de Phone Number [facility] Brittany Rice [address] [place] [address] * (ABNORMAL) Reticulocyte Count (04/25/2023 8:14 AM VICE ADMIRAL) Pathologist [facility] Reticulocyte Count Percent 5.22(H) 0.10 - 1.00 % 04/25/2023 8:23 AM VICE ADMIRAL [facility] Reticulocyte Count Absolute 155.60 No defined reference range 10 3/ L 04/25/2023 8:23 AM VICE ADMIRAL [facility] Blood VEIN SPECIMEN / Unknown Blood Collection / Unknown 04/25/2023 8:14 AM VICE ADMIRAL 04/25/2023 8:21 AM VICE ADMIRAL us Jamshid Sapp MD HEMATOLOGY ORDERABLES Final Result Performing Organization Address [facility] Co de Phone Number [facility] [address] [place] [address] * LDH (04/25/2023 8:14 AM VICE ADMIRAL) Pathologist [facility] LDH 192 0 - 271 units/L 04/25/2023 8:47 AM VICE ADMIRAL [facility] Blood VEIN SPECIMEN / Unknown Blood Collection / Unknown 04/25/2023 8:14 AM VICE ADMIRAL 04/25/2023 8:21 AM VICE ADMIRAL us Jamshid Sapp MD CHEMISTRY ORDERABLES Final R esult Performing Organization Address City/[facility]/ZIP Co de Phone Number [facility] [address] [place] [address] * (ABNORMAL) CBC with Differential (04/25/2023 8:14 AM VICE ADMIRAL) Pathologist [facility] WBC 3.2(L) 3.5 - 10.5 10 3/ L 04/25/2023 8:23 AM VICE ADMIRAL [facility] RBC 2.98(L) (Based on documented legal sex) 4.30-5.80 10 6/ L 04/25/2023 8:23 AM [facility] HGB 11.0(L) (Based on documented legal sex) 13.0-17.5 g/dL 04/25/2023 8:23 AM [facility] HCT 33.6(L) (Based on documented legal sex) 38.0-50.0 % 04/25/2023 8:23 AM [facility] MCV 113.0(H) 80.0 - 99.0 fL 04/25/2023 8:23 AM [facility] MCH 36.9(H) 27.0 - 34.0 pg 04/25/2023 8:23 AM [facility] MCHC 32.7 32.0 - 35.5 g/dL 04/25/2023 8:23 AM [facility] RDW 11.8 11.0 - 15.0 % 04/25/2023 8:23 AM [facility] PLT 147 140 - 390 10 3/ L 04/25/2023 8:23 AM [facility] MPV 9.0 8.8 - 12.1 fL 04/25/2023 8:23 AM [facility] Neutrophils 59.0 34.0 - 73.0 % 04/25/2023 8:23 AM [facility] Lymphocytes 29.0 15.0 - 50.0 % 04/25/2023 8:23 AM [facility] Monocytes 9.0 1.0 - 15.0 % 04/25/2023 8:23 AM [facility] Eosinophils 2.0 0.0 - 8.0 % 04/25/2023 8:23 AM [facility] Basophils 1.0 0.0 - 2.0 % 04/25/2023 8:23 AM [facility] Immature Granulocytes 0.0 No defined reference range % 04/25/2023 8:23 AM [facility] Comment:Immature Granulocyte s (IG) represents automated enumeration of Metamyelocytes, Myelocytes and Promyelocytes when IG is < 5%. Blasts are not included in IG and reported separately if present. Absolute Neutrophils 1.9 1.5 - 8.0 10 3/ L 04/25/2023 8:23 AM [facility] Absolute Lymphocytes 0.9(L) 1.0 - 4.0 10 3/ L 04/25/2023 8:23 AM [facility] Absolute Monocytes 0.3 0.2 - 1.0 10 3/ L 04/25/2023 8:23 AM [facility] Absolute Eosinophils 0.1 0.0 - 0.6 10 3/ L 04/25/2023 8:23 AM VICE ADMIRAL [facility] Absolute Basophils 0.0 0.0 - 0.3 10 3/ L 04/25/2023 8:23 AM [facility] Absolute Immature Granulocytes 0.0 0.00 - 0.10 10 3/ L 04/25/2023 8:23 AM [facility] Differential Type Auto 023 8:23 AM [facility] Blood VEIN SPECIMEN / Unknown Blood Collection / Unknown 04/25/2023 8:14 AM VICE ADMIRAL 04/25/2023 8:21 AM VICE ADMIRAL us Jamshid Sapp MD HEMATOLOGY ORDERABLES Final Result [facility] [address] [place] [address] * (ABNORMAL) Comprehensive Metabolic Panel (04/25/2023 8:14 AM VICE ADMIRAL) Sodium 139 133 - 146 mmol/L 04/25/2023 8:47 AM [facility] Potassium 3.8 3.5 - 5.1 mmol/L 04/25/2023 8:47 AM [facility] Chloride 105 98 - 109 mmol/L 04/25/2023 8:47 AM [facility] Carbon Dioxide 29 21 - 31 mmol/L 04/25/2023 8:47 AM [facility] Anion Gap 5 4 - 13 mmol/L 04/25/2023 8:47 AM [facility] Blood Urea Nitrogen 17 2 - 25 mg/dL 04/25/2023 8:47 AM [facility] Creatinine 0.84 0.60 - 1.30 mg/dL 04/25/2023 8:47 AM [facility] eGFRcr (CKD-EPI 2020) >90 >=60 mL/min/1.7 3 m 04/25/2023 8:47 AM [facility] Calcium 9.1 8.3 - 10.5 mg/dL 04/25/2023 8:47 AM [facility] Glucose 90 65 - 100 mg/dL 04/25/2023 8:47 AM [facility] Protein, Total 6.5 6.4 - 8.9 g/dL 04/25/2023 8:47 AM [facility] Albumin 4.4 3.5 - 5.7 g/dL 04/25/2023 8:47 AM VICE ADMIRAL [facility] ALT 20 0 - 52 units/L 04/25/2023 8:47 AM [facility] Alkaline Phosphatase 47 34 - 104 units/L 04/25/2023 8:47 AM [facility] AST 19 0 - 39 units/L 04/25/2023 8:47 AM [facility] Bilirubin, Total 1.6(H) 0.0 - 1.0 mg/dL 04/25/2023 8:47 AM [facility] Blood VEIN SPECIMEN / Unknown Blood Collection / Unknown 04/25/2023 8:14 AM VICE ADMIRAL 04/25/2023 8:21 AM VICE ADMIRAL us Jamshid Sapp MD CHEMISTRY ORDERABLES Final R esult [facility] [address] [place] [address] documented in this encounter Visit Diagnoses Diagnosis Acquired hemolytic anemia ([facility]-HCC)- Primary Acquired hemolytic anemia, unspecified documented in this encounter Additional Health Concerns Infection Onset Date Last Indicated Resolved Time Rule-out C. diff 04/18/2024 05/20/2024 04/19/2024 7:26 PM VICE ADMIRAL documented as of this encounter Care Teams Cattyman Relationship Specialty Start Date End Date Gloria Carlos MD [address] [place] [address] PCP - General 02/09/14 04/24/23 Darío Medeiros MD [address] [place] [address] PCP - General Internal Medicine 04/25/23 Jamshid Sapp MD [address] [place] [address] System Generated Attributed Clinician 04/10/23 documented as of this encounter
--- OUTSIDE RECORDS SUMMARY | 2025-01-16 18:22 | XMS_ITS | Encounter Summary ---
Author Organization [facility] Address [address] [place] [address] Care Team Providers Care Tool And Die Maker Level Five Name Role Phone Jamshid Sapp MD Unavailable [phone] Darío Medeiros MD Primary Care Provider [phone] Source Comments In the event that this is information that is protected by federal Confidentiality of Substance User Disorder Patient Records, 42 CFR Part 2 prohibits the unauthorized disclosure of these records.[facility] Encounter Details Date Type Department Care Team (Late st Contact Info) Description 04/18/2024 Procedure Pass NM Gastroenterology [address] [facility] [place] [address] Social History Tobacco Use Types Packs/Day Years [...] Answer Date Recorded Are you concerned about [facility] a safe and reliable place [...] on file 02/18/2023 Are you concerned about [facility] ng a safe and reliable place to live? 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 Not on file Not on camryn e documented as of this encounter Plan of Treatment Upcoming Encounters Date Type Department Care Team (Late st Contact Info) Description 04/08/2025 11:10 AM EMBEDDED SYSTEMS SOFTWARE ENGINEER Outpatient Testing [facility] [address] [place] [phone] 3 month 04/08/2025 11:45 AM EMBEDDED SYSTEMS SOFTWARE ENGINEER Office Visit [place] [facility] [address] [place] [phone] Jamshid Sapp MD [address] [place], [place] [phone] 3 month documented as of this encounter Visit Diagnoses Not on filedocumented in this encounter Additional Health Concerns Infection Onset Date Last Indicated Resolved Time Rule-out C. diff 04/18/2024 05/20/2024 04/19/2024 7:26 PM EMBEDDED SYSTEMS SOFTWARE ENGINEER documented as of this encounter Care Teams Tool And Die Maker Level Five Relationship Specialty Start Date End Date Darío Medeiros MD [address] [place] [address] PCP - General Internal Medicine 04/25/23 Jamshid Sapp MD [address] [place] [address] System Generated Attributed Clinician 04/10/23 documented as of this encounter
--- OUTSIDE RECORDS SUMMARY | 2025-01-16 18:22 | XMS_ITS | Clinical Summary ---
Author Organization [facility] Address [address] [place] [address] Care Team Providers Care Bariatric Nurse Name Role Phone Jamshid Sapp MD Unavailable [phone] Darío Medeiros MD Primary Care Provider [phone] Source Comments In the event that this is information that is protected by federal Confidentiality of Substance UseDisorder Patient Records, 42 CFR Part 2 prohibits the unauthorized disclosure of these records.[facility] Allergies Active Allergy Reactions Criticality Noted Date Comments Latex Itching,Rash High 02/19/2023 Medications sertraline 25 mg tablet Take 1 tablet by mouth daily. Take 25mg for one week and then start 50mg Active mirtazapine 15 mg tablet 4 Active ascorbic acid (VITAMIN C ORAL) Take by mouth. Active FOLIC ACID ORAL Take by mouth. Active ondansetron-ODT 4 mg disintegrating tablet 4 Active gabapentin 100 mg capsule Take 1 oral capsule as needed up to 3 times a day 4 Active FLUoxetine 10 mg capsule Take 5 capsules by mouth daily. 4 Active clonazePAM 0.5 mg tablet Take 2 tablets by mouth if needed. 4 Active sodium,potassium,ma g sulfates (SUPREP BOWEL PREP KIT) 17.5-3.13-1.6 gram Recon SolnIndications:Harika rrhea, unspecified type,Rectal bleeding,Vomiting, unspecified vomiting type, unspecified whether nausea present,Weight loss,Anemia, unspecified type Take as directed 354 mL 4 Active esomeprazole (NEXIUM) 40 mg capsuleIndications: Diarrhea, unspecified type,Rectal bleeding,Vomiting, unspecified vomiting type, unspecified whether nausea present,Weight loss,Anemia, unspecified type 1 capsule by mouth daily, 30-60 minutes before eating 30 capsule 11 4 Active cloNIDine HCL 0.1 mg tablet 1 tablet. 4 Active hydrOXYzine 25 mg tablet Take 1 tablet by mouth every 6 (six) hours as needed. 5 Active QUEtiapine 50 mg tablet extended release 24 hr Take 1 tablet by mouth if needed. 5 Active Active Problems Problem Noted Date Diagnosed Date Macrocytic anemia 02/19/2023 Total bilirubin, elevated 02/19/2023 Unintentional weight loss 02/19/2023 Encounters Date Type Department Care Team Description 01/05/2025 3:45 PM CDT Office Visit [facility] [address] [place] [phone] Jamshid Sapp MD Acquired hemolytic anemia ([facility]-H[facility]) (Primary Dx); Macrocytic anemia 01/05/2025 2:45 PM CDT Outpatient Testing [facility] [address] [place] [phone] Acquired hemolytic anemia (CMS-HCC); Macrocytic anemia 01/02/2025 Telephone [facility] [address] [place] [phone] Jamshid Sapp MD Appointment 12/12/2024 Orders Only [facility] [address] [place] [phone] Jamshid Sapp MD 11/28/2024 Telephone [facility] [address] [place] [phone] Jamshid Sapp MD Appointment from Last 3 Months Immunizations Immunization Administration Dates Next Due Tdap 02/19/2023,03/18/2013 Family History Medical History Relation Name Comments No Known Problems Brother Depression Father Heart Attack Father High Blood Pressure Father No Known Problems Maternal Grandfather No Known Problems Maternal Grandmother Depression Mother No Known Problems Paternal Grandfather No Known Problems Paternal Grandmother Colon Cancer Neg Hx Colon Polyps Neg Hx Relation Name Status Comments Brother Alive Father Maternal Grandfather Maternal Grandmother Mother Alive Paternal Grandfather Paternal Grandmother Social History Tobacco Use Types Packs/Day Years Used Date Smoking Tobacco: Never Smokeless Tobacco: Never Tobacco Cessation:Counseling Given: Not Answered Alcohol Use Standard Drinks/Week Comments Not Currently [...] 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 Not on camryn e Last Filed Vital Signs Vital Sign Reading Time Taken Comments Blood Pressure 145/87 01/05/2025 3:08 PM CDT Pulse 99 01/05/2025 3:07 PM CDT Temperature 36.4 C (97.5 F) 01/05/2025 3:07 PM CDT Respiratory Rate 16 06/17/2024 3:14 PM SALES REPRESENTATIVE TRAINEE Oxygen Saturation 97% 01/05/2025 3:07 PM CDT Inhaled Oxygen Concentration - - Weight 66.9 kg (147 lb 6.4 oz) 01/05/2025 3:07 P M CDT Height 180.3 cm (5' 11) 06/17/2024 1:19 PM SALES REPRESENTATIVE TRAINEE Body Mass Index 20.56 06/17/2024 1:19 PM SALES REPRESENTATIVE TRAINEE Plan of Treatment Upcoming Encounters Date Type Department Care Team (Late st Contact Info) Description 04/08/2025 11:10 AM SALES REPRESENTATIVE TRAINEE Outpatient [facility] [address] [place] [phone] 3 month 04/08/2025 11:45 AM SALES REPRESENTATIVE TRAINEE Office Visit [facility] [address] [place] [phone] Jamshid Sapp MD [address] [place], [place] [phone] 3 month Health Maintenance Due Date Last Done Comments 1 YR COLONOSCOPY 1985 2 YR COLONOSCOPY 1985 3 MONTHS COLONOSCOPY 1985 3 YR COLONOSCOPY 1985 4 YR COLONOSCOPY 1985 5 YEAR SIGMOIDOSCOPY 1985 5 YR COLONOSCOPY 1985 6 MONTHS COLONOSCOPY 1985 6 YR COLONOSCOPY 1985 7 YR COLONOSCOPY 1985 8 YR COLONOSCOPY 1985 9 YR COLONOSCOPY 1985 ANNUAL FOBT [address] Colonography 1985 COVID-19 VACCINE (2024-2 6 season) 2024 04/13/2021, 08/28/2020, 08/07/2020 INFLUENZA (#1) 2024 Diabetes Screening 01/06/2028 01/05/2025, 01/05/2025 LIPID TESTING 02/20/2028 02/19/2023 DTAP/TDAP/TD (3 - Td or Tdap) 02/19/2033, 03/18/2013 10 YR COLONOSCOPY 06/15/2034 06/20/2024 Colorectal Cancer Screening 06/15/2034 HEPATITIS C SCREENING Completed 02/19/2023 HIV SCREENING Completed 02/19/2023 DATE OF LAST IDENTIFIED COLONOSCOPY Completed 06/20/2024 MENINGOCOCCAL B (MENB) Aged Out No lo nger eligible based on patient's age to complete this topic Pneumococcal 0-49 Aged Out No longer eligible based on patient's age to complete this topic Procedures Procedure Name Priority Date/Time Associated Diagnosis Comments HAPTOGLOBIN Routine 01/05/2025 2:51 PM CDT Acquired hemolytic anemia (CMS-HCC) Macrocytic anemia LDH Routine 01/05/2025 2:51 PM CDT Acquired hemolytic anemia (CMS-HCC) Macrocytic anemia RETICULOCYTE COUNT Routine 01/05/2025 2: 51 PM CDT Acquired hemolytic anemia (CMS-HCC) Macrocytic anemia COMPREHENSIVE METABOLIC PANEL Routine 01/05/2025 2:51 PM CDT Acquired hemolytic anemia (CMS-HCC) Macrocytic anemia CBC AND DIFFERENTIAL Routine 01/05/2025 2:51 PM CDT Acquired hemolytic anemia (CMS-HCC) LIPID PANEL (AMA) W/LDL CALC Routine 02/19/2023 11:38 AM CDT Annual physical exam HIV ANTIGEN/ANTIBODY,REF RIMA CONFIRMATION Routine 02/19/2023 11:38 AM CDT Screening for HIV (human immunodeficiency virus) HEPATITIS C ANTIBODY, REFLEX CONFIRMATION (WEST/NORTH/CENTRAL/ ) Routine 02/19/2023 11:38 AM CDT Need for hepatitis C screening test from Last 3 Months or Most Recently Relevant to Health Maintenance Results * (ABNORMAL) Reticulocyte Count (01/05/2025 2:51 PM CDT) Reticulocyte Count Percent 3.53(H) 0.50 - 2.50 % 01/05/2025 3:26 PM CDT [facility] Reticulocyte Count Absolute 145.10 No defined reference range 10 3/ L 01/05/2025 3:26 PM CDT [facility] Blood VEIN SPECIMEN / Unknown Blood Collection / Unknown 01/05/2025 2:51 PM CDT 01/05/2025 3:18 PM CDT Narrative [facility] - 01/05/2025 3:26 PM CDT Reference ranges for nonbinary/intersex or unspecified gender patients have not been established. Please refer to the following table for ranges established for cisgender patients and evaluate in the clinical context of the individual patient: [email or web address] Jamshid Sapp MD HEMATOLOGY ORDERABLES Final Result Performing Organization Address City/State/[facility] Co de Phone Number [facility] [address] [place] [address] * (ABNORMAL) CBC with Differential (01/05/2025 2:51 PM CDT) [facility] WBC 4.9 3.5 - 10.5 10 3/ L 01/05/2025 3:26 PM CDT [facility] RBC 4.11(L) (Based on documented legal sex) 4.30-5.80 10 6/ L 01/05/2025 3:26 PM CDT [facility] HGB 14.3 (Based on documented legal sex) 13.0-17.5 g/dL 01/05/2025 3:26 PM CDT [facility] HCT 42.9 (Based on documented legal sex) 38.0-50.0 % 01/05/2025 3:26 PM CDT [facility] MCV 104.4(H) 80.0 - 99.0 fL 01/05/2025 3:26 PM CDT [facility] MCH 34.8(H) 27.0 - 34.0 pg 01/05/2025 3:26 PM CDT [facility] MCHC 33.3 32.0 - 35.5 g/dL 01/05/2025 3:26 PM T [facility] RDW 11.6 11.0 - 15.0 % 01/05/2025 3:26 PM T [facility] PLT 239 150 - 400 10 3/ L 01/05/2025 3:26 PM [facility] MPV 9.2 8.8 - 12.1 fL 01/05/2025 3:26 PM [facility] NRBC's 0.0 0.0 % 01/05/2025 3:26 PM T [facility] Absolute NRBCs 0.0 No reference range established 10 3/ L 01/05/2025 3:26 PM [facility] Neutrophils 77.7(H) 34.0 - 73.0 % 01/05/2025 3:26 PM [facility] Lymphocytes 12.7(L) 15.0 - 50.0 % 01/05/2025 3:26 PM [facility] Monocytes 7.8 1.0 - 15.0 % 01/05/2025 3:26 PM [facility] Eosinophils 1.0 0.0 - 8.0 % 01/05/2025 3:26 PM [facility] Basophils 0.6 0.0 - 2.0 % 01/05/2025 3:26 PM [facility] Immature Granulocytes 0.2 No defined reference range % 01/05/2025 3:26 PM [facility] Comment:Immature Granulocyte s (IG) represents automated enumeration of Metamyelocytes, Myelocytes and Promyelocytes when IG is < 5%. Blasts are not included in IG and reported separately if present. Absolute Neutrophils 3.8 1.5 - 8.0 10 3/ L 01/05/2025 3:26 PM [facility] Absolute Lymphocytes 0.6(L) 1.0 - 4.0 10 3/ L 01/05/2025 3:26 PM [facility] Absolute Monocytes 0.4 0.2 - 1.0 10 3/ L 01/05/2025 3:26 PM T [facility] Absolute Eosinophils 0.1 0.0 - 0.6 10 3/ L 01/05/2025 3:26 PM CDT [facility] Absolute Basophils 0.0 0.0 - 0.3 10 3/ L 01/05/2025 3:26 PM CDT [facility] Absolute Immature Granulocytes 0.0 0.00 - 0.10 10 3/ L 01/05/2025 3:26 PM CDT [facility] Blood VEIN SPECIMEN / Unknown Blood Collection / Unknown 01/05/2025 2:51 PM CDT 01/05/2025 3:18 PM CDT Narrative [facility] - 01/05/2025 3:26 PM CDT Reference ranges for nonbinary/intersex or unspecified gender patients have not been established. Please refer to the following table for ranges established for cisgender patients and evaluate in the clinical context of the individual patient: [email or web address] Jamshid Sapp MD HEMATOLOGY ORDERABLES Final Result Performing Organization Address [facility] Co de Phone Number [facility] [address] [place] [address] * LDH (01/05/2025 2:51 PM CDT) Pathologist [facility] LDH 179 0 - 271 units/L 01/05/2025 3:34 PM CDT [facility] Blood VEIN SPECIMEN / Unknown Blood Collection / Unknown 01/05/2025 2:51 PM CDT 01/05/2025 3:20 PM CDT us Jamshid Sapp MD CHEMISTRY ORDERABLES Final R esult Performing Organization Address [facility]/ZIP Co de Phone Number [facility] [address] [place] [address] * (ABNORMAL) Haptoglobin (01/05/2025 2:51 PM CDT) Pathologist [facility] Haptoglobin <30(L) 30 - 210 mg/dL 01/06/2025 11:07 AM CDT [facility] Blood VEIN SPECIMEN / Unknown Blood Collection / Unknown 01/05/2025 2:51 PM CDT 01/05/2025 3:20 PM CDT us Jamshid Sapp MD CHEMISTRY ORDERABLES Final R esult [facility] Brittany Rice [address] [place] [address] * (ABNORMAL) Comprehensive Metabolic Panel (01/05/2025 2:51 PM CDT) Sodium 137 133 - 146 mmol/L 01/05/2025 3:34 PM CDT [facility] Potassium 3.9 3.5 - 5.1 mmol/L 01/05/2025 3:34 PM CDT [facility] Chloride 99 98 - 109 mmol/L 01/05/2025 3:34 PM CDT [facility] Carbon Dioxide 30 21 - 31 mmol/L 01/05/2025 3:34 PM CDT [facility] Anion Gap 8 4 - 13 mmol/L 01/05/2025 3:34 PM CDT [facility] Blood Urea Nitrogen 19 2 - 25 mg/dL 01/05/2025 3:34 PM CDT [facility] Creatinine 1.04 0.60 - 1.30 mg/dL 01/05/2025 3:34 PM CDT [facility] eGFRcr (CKD-EPI 2020) >90 >=60 mL/min/1. 73 m 01/05/2025 3:34 PM CDT [facility] Calcium 10.1 8.3 - 10.5 mg/dL 01/05/2025 3:34 PM CDT [facility] Glucose 91 65 - 100 mg/dL 01/05/2025 3:34 PM CDT [facility] Protein, Total 7.7 6.4 - 8.9 g/dL 01/05/2025 3:34 PM CDT [facility] Albumin 5.1 3.5 - 5.7 g/dL 01/05/2025 3:34 PM CDT [facility] ALT 23 0 - 52 units/L 01/05/2025 3:34 PM CDT [facility] Alkaline Phosphatase 61 34 - 104 units/L 01/05/2025 3:34 PM CDT [facility] AST 18 0 - 39 units/L 01/05/2025 3:34 PM CDT [facility] Bilirubin, Total 1.2(H) 0.0 - 1.0 mg/dL 01/05/2025 3:34 PM CDT [facility] Patient Fasting? Nonfasting 01/05/2025 3:34 PM CDT [facility] Blood VEIN SPECIMEN / Unknown Blood Collection / Unknown 01/05/2025 2:51 PM CDT 01/05/2025 3:20 PM CDT us Jamshid Sapp MD CHEMISTRY ORDERABLES Final R esult [facility] [address] [place] [address] * Hepatitis C Antibody,Reflex Confirmation ([place]) (02/19/2023 11:38 AM CDT) Hepatitis C Antibody Non-react patrick Non-react patrick 02/19/2023 9:52 PM CDT [facility] Comment:Antibodies to HCV No t Detected, does not exclude the possibility of exposure to HCV. Blood VEIN SPECIMEN / Unknown Blood Collection / Unknown 02/19/2023 11:38 AM CDT 02/19/2023 11:38 AM CDT us Darío Medeiros MD IMMUNOLOGY ORDERABLES Final Resu lt [facility] Brittany Rice [address] [place] [address] * HIV 1/2 Antigen/Antibody,Reflex Confirmation (02/19/2023 11:38 AM CDT) HIV Antigen/Anti body Nonreactive Nonreactive 02/19/2023 9:52 PM CDT [facility] Blood VEIN SPECIMEN / Unknown Blood Collection / Unknown 02/19/2023 11:38 AM CDT 02/19/2023 11:38 AM CDT [facility] - 02/19/2023 9:52 PM CDT HIV-1 antigen and HIV-1/HIV-2 antibodies were not detected. No laboratory evidence of HIV infection. us Darío Medeiros MD CHEMISTRY ORDERABLES Final Resul t [facility] Brittany Rice [address] [place] [address] * Lipid Panel(AMA) w/LDL Calculated (02/19/2023 11:38 AM CDT) Total Cholesterol 120 mg/dL 023 8:02 PM CDT [facility] Comment:Guideline: < 170 mg/dl, Optimal (Not to be construed as a target for drug therapy.) Triglycerides 54 mg/dL 02/19/2023 8:02 PM CDT [facility] Comment: Guideline: < 100 mg/dl, Optimal (Not to be construed as a target for drug therapy.) > 499 mg/dl, Highly abnormal (Please review with your medical team.) HDL Cholesterol 60 mg/dL 8:02 PM CDT [facility] Comment:Guideline: > 50 mg/d l, Optimal (Not to be construed as a target for drug therapy.) LDL Cholesterol 47 mg/dL 3 8:02 PM T [facility] Comment: Guideline: < 100 mg/dl, Optimal (Not to be construed as a target for drug therapy.) > 189 mg/dl, Highly abnormal (Please review with your medical team.) Non-HDL Cholesterol 60 mg/dL 02/19/2023 8:02 PM T [facility] Comment: Guideline: < 120 mg/dl, Optimal (Not to be construed as a target for drug therapy.) > 219 mg/dl, Highly abnormal (Please review with your medical team.) Blood VEIN SPECIMEN / Unknown Blood Collection / Unknown 02/19/2023 11:38 AM CDT 02/19/2023 11:38 AM CDT [facility] - 02/19/2023 8:02 PM CDT On August 22, 2022, [facility] laboratories changed the equation for calculating estimated low-density lipoprotein-cholesterol (LDL-C) from the Friedewald equation to the Nas/Vincent equation. This new equation is only valid for lipid panels with triglycerides < 400 mg/dL. Studies have demonstrated that this new equation will improve the accuracy of LDL-C, especially in scenarios when LDL-C concentrations are relatively low (< 100 mg/dL), triglycerides are elevated, or patient is non- fasting. References: - Mil Lovell, Carlos Rodriguez, Juan Francisco Acosta, Chema Joiner, Chema Ferguson, Joe Olivares, and Shawn Strong. 2013. Comparison of a Novel Method vs the Friedewald Equation for Estimating Low-Density Lipoprotein Cholesterol Levels from the Standard Lipid Profile. MARTHA: The Journal of the [place] [employer] 310 (19): 2061-68. - Giovanna V, Paloma J, Zev A, Itz M, Rufino R, Dipika E, Elise RS, Tae SR, Nas SS. Fasting Versus Nonfasting and Low-Density Lipoprotein Cholesterol Accuracy. Circulation. 2018 May 01;137(1):10-19. us Darío Medeiros MD CHEMISTRY ORDERABLES Final Resul t [facility] Brittany Rice [address] [place] [address] from Last 3 Months or Most Recently Relevant to Health Maintenance Insurance [facility] BLUE CHOICE PREFERRED * Guarantor: Kennedy Garcia Account Type Relation to Patient Date of Phone Billing Address [place] [facility] 1985 [address] [place] [address] [facility] BLUE CHOICE PREFERRED Care Teams Bariatric Nurse Relationship Specialty Start Date End Date Darío Medeiros MD [address] [place] [address] PCP - General Internal Medicine 04/25/23 Jamshid Sapp MD [address] [place] [address] System Generated Attributed Clinician 04/10/23
--- OUTSIDE RECORDS SUMMARY | 2025-01-16 18:22 | XMS_ITS | Encounter Summary ---
Author Organization [facility] Address [address] [place] [address] Care Team Providers Care Medical Assistant Dermatology Name Role Phone Jamshid Sapp MD Unavailable [phone] Darío Medeiros MD Primary Care Provider [phone] Source Comments In the event that this is information that is protected by federal Confidentiality of Substance User Disorder Patient Records, 42 CFR Part 2 prohibits the unauthorized disclosure of these records.[facility] Reason for Visit * Reason Comments Appointment Encounter Details Date Type Department Care Team (Late st Contact Info) Description 01/02/2025 Telephone [facility] [address] [phone] Jamshid Sapp MD [address] [place] [address] Appointment Social History Tobacco Use [...] Answer Date Recorded Are you [facility] safe and reliable [...] 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 Sapp on 01/05/25. Told him he also needs labs drawn that day and asked him to come in at 2:45. Left my direct call back number if he has any questions. documented in this encounter Plan of Treatment Upcoming Encounters Date Type Department Care Team (Late st Contact Info) Description 04/08/2025 11:10 AM CAR PINCHER Out[facility] Testing [facility] [address] [phone] 3 month 04/08/2025 11:45 AM CAR PINCHER Office Visit [facility] [address] [phone] Jamshid Sapp MD [address] [place], [place] [phone] 3 month documented as of this encounter Visit Diagnoses Not on filedocumented in this encounter Care Teams Medical Assistant Dermatology Relationship Specialty Start Date End Date Darío Medeiros MD [address] [place] [address] PCP - General Internal Medicine 04/25/23 Jamshid Sapp MD [address] [place] [address] System Generated Attributed Clinician 04/10/23 documented as of this encounter
--- OUTSIDE RECORDS SUMMARY | 2025-01-16 18:22 | XMS_ITS | Encounter Summary ---
Author Organization [facility] Address [address] [place] [address] Care Team Providers Care Marine Pipe Welder Name Role Phone Jamshid Sapp MD Unavailable [phone] Darío Medeiros MD Primary Care Provider [phone] Source Comments In the event that this is information that is protected by federal Confidentiality of Substance User Disorder Patient Records, 42 CFR Part 2 prohibits the unauthorized disclosure of these records.[facility] Encounter Details Date Type Department Care Team (Late st Contact Info) Description 08/22/2023 Procedure Pass [place] [facility] [address] [place], [place] [phone] Social History Tobacco Use Types Packs/Day Years [...] Answer Date Recorded [facility] reliable [...] on file 02/18/2023 Are you concerned about [facility] ng a safe and reliable place to live? 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 on file Not on camryn e documented as of this encounter Plan of Treatment Upcoming Encounters Date Type Department Care Team (Late st Contact Info) Description 04/08/2025 11:10 AM SENIOR CLINICAL RESEARCH SCIENTIST [facility] [address] [place] [phone] 3 month 04/08/2025 11:45 AM SENIOR CLINICAL RESEARCH SCIENTIST Office [facility] [address] [place] [phone] Jamshid Sapp MD [address] [place], [place] [phone] 3 month documented as of this encounter Visit Diagnoses Not on filedocumented in this encounter Additional Health Concerns Infection Onset Date Last Indicated Resolved Time Rule-out C. diff 04/18/2024 05/20/2024 04/19/2024 7:26 PM SENIOR CLINICAL RESEARCH SCIENTIST documented as of this encounter Care Teams Marine Pipe Welder Relationship Specialty Start Date End Date Darío Medeiros MD [address] [place] [address] PCP - General Internal Medicine 04/25/23 [place] [address] [place], [place] [address], [place] [address] System Generated Attributed Clinician 04/10/23 documented as of this encounter
[2025-01-16 18:23] VITALS: BP 148/94; PULSE 83; RESP 18; TEMP 37; O2SAT 94
[2025-01-16 18:23] LABS: Acetaminophen* < 10.0 ug/mL (10.0-30.0); Salicylate* < 1.0 mg/dL (1.0-10)
[2025-01-16] MEDS: LEVETIRACETAM 1,000 mg/100 ml INFUSION 500 MG IVPB (19:06)
[2025-01-16] MEDS: LEVETIRACETAM 1,000 mg/100 ml INFUSION 1000 MG IVPB (19:07)
[2025-01-16 19:17] LABS: Albumin* 4.7 g/dL (3.3-5.0)
== END 2025-01-16 20:37 | disposition home or self-care (01) ==
PROVIDERS: Emergency Provider Family Medicine
DX: G40.309 Generalized idiopathic epilepsy and epileptic syndromes, not intractable, without status epilepticus (principal)
CPT/HCPCS: 36415; 70450; 80048; 80076; 80143; 80179; 80306; 81001; 83605; 83735; 84443; 84484; 85025; 86140; 93005; 94761; 96365; 96366; 96375; 99285; A9270; J1953; J2060; J7030